=== PATIENT | female | born 1940 | race Caucasian/White ===

== ENCOUNTER 2017-08-09 15:01 | Emergency (ER) | payer MEDICARE, BC, SELFPAY ==
[2017-08-09 15:03] VITALS: BP 131/74; PULSE 90; RESP 16; TEMP 36.4; O2SAT 94; BMI 26.5
[2017-08-09 15:10] VITALS: BP 125/70; PULSE 80; RESP 14; O2SAT 99
--- NOTE | 2017-08-09 15:17 | RAD_ITS ---
STUDY: X-RAY CHEST REASON FOR EXAM: Female, 77 years old. Cough TECHNIQUE: PA and lateral views of the chest. COMPARISON: July 29, 2016 chest x-ray FINDINGS: There is a right side portacatheter tip is in the superior vena cava. There is a visualized right-sided calcified breast implant. The right lung is partially obscured. There is increased interstitial markings in the lungs throughout with predominance in the left lung base. There is improved aeration of the lungs since prior study. There is borderline cardiomegaly. Normal mediastinum and eloy. Normal visualized pulmonary arteries. There is atherosclerotic calcification of the aortic arch with tortuosity. There are diffuse degenerative changes of the visualized thoracic spine. Normal visualized ribs, clavicles, and shoulders. There is no demonstrated abnormality of the visualized soft tissue structures of the upper abdomen. RAD/Chest PA and Lateral IMPRESSION: Improved aeration of the lungs since prior study, minimal left lower lobe atelectasis. Trace pulmonary edema. Right-sided Port-A-Cath tip in the superior vena cava. Electronically Signed: Carlie Ramos MD at 15:47 EDT Tel , Service support ,
--- NOTE | 2017-08-09 15:17 | RAD_ITS ---
STUDY: X-RAY - RIGHT KNEE REASON FOR EXAM: Female, 77 years old. Fall and swelling. Pain TECHNIQUE: 4 view(s) of the knee. COMPARISON: None. FINDINGS: Lucencies in the tibial plateau noted likely an intra-articular lateral tibial plateau fracture. Knee joint effusion. Degenerative changes in the knee joint also seen with spurring. Patellofemoral compartment spurring also seen IMPRESSION: Intra-articular likely comminuted fracture of the lateral tibial plateau. Small knee joint effusion suspected Degenerative arthritis of the knee joint Electronically Signed: Germain Henderson, at 15:51 EDT Tel , Service support , RAD/Knee 4 or More Views
--- NOTE | 2017-08-09 15:22 | ED.DCSUM_ITS ---
- ER Visit Summary Date of Service: 08/09/17 Chief Complaint: Fall with right knee injury History of Present Illness: The patient is a 77 F who slipped on a wet floor yesterday and twisted her right knee when she fell. She denies landing directly on her knee. She states she is unable to bear weight on her right leg. She has been taking Tylenol for pain. She denies any other injury from the fall. Patient does have a history of COPD and continues to smoke. Family is concerned about a significant cough that she has had recently and is afraid she may have pneumonia. Physical Examination: Vital signs unremarkable. Patient sitting upright in bed no acute distress. Head neck examination reveals no external sign of trauma. Heart is regular rate and rhythm. Lung sounds are clear. Abdomen is soft nontender. Lower extremity examination reveals mild tenderness diffusely around the right knee including the lateral joint line. Ligaments appear tight on testing. She has mild edema noted. She does have increased pain with movement. Strong distal pulses are noted. There is no erythema or abrasions noted. Upper extremity examination reveals mild tenderness of the left wrist on the radial aspect. She has full range of motion and no significant edema. She is normal cap refill and sensation. Test Results: Left wrist x-ray shows no acute fracture. Chest x-ray shows improved aeration compared to prior. There is mild left lower lobe atelectasis. Right knee x-ray reveals an intra-articular likely comminuted fracture of the lateral tibial plateau. CT of the right knee was then obtained which confirmed an acute depressed intra-articular fracture the lateral tibial plateau with a joint effusion. There is a 6 mm depressed fracture segment. Emergency Department Course and Treatment: Following CT results I spoke with Dr. Marcial, on-call for Dr. Burton. He states that depression less than 1 cm in the lateral plateau is treated nonoperatively. Patient can be placed in a knee immobilizer and is made nonweightbearing. Treatment Plan: [] Disposition: Discharge Impression: 1. Right lateral tibial plateau fracture This note was generated with [employer] dictation software. It may contain incorrect words, spelling, and punctuation that were not noted in review of the chart prior to signing ED Disposition - Plan for ED Patient: Chief Complaint: Lower Extremity Injury Referrals: Kayden Lan Chi, MD [Primary Care Provider] -
--- NOTE | 2017-08-09 15:24 | RAD_ITS ---
STUDY: X-RAY - LEFT WRIST REASON FOR EXAM: Female, 77 years old. Fall TECHNIQUE: 3 view(s) of the wrist were obtained. COMPARISON: None. FINDINGS: No definite evidence for acute fracture or dislocation seen. No lunate or perilunate dislocation. Diffuse osteopenia noted IMPRESSION: No evidence for acute fractures Electronically Signed: Germain Henderson, at 15:48 EDT Tel , Service support , RAD/Wrist min 3 Views
--- NOTE | 2017-08-09 16:17 | CT_ITS ---
STUDY: CT RIGHT KNEE WITHOUT CONTRAST REASON FOR EXAM: Female, 77 years old. Trauma RADIATION DOSAGE (If Supplied By Facility): CTDIvol = ( 15.35 ) mGy, DLP = ( 380.63 ) mGycm TECHNIQUE: Transaxial CT imaging of the knee was performed. Coronal and sagittal images were reformatted. COMPARISON: None. FINDINGS: Narrowed medial femoral condyle and medial tibial plateau. There is preservation of the articular joint space of the medial knee compartment. Normal lateral femoral condyle. There is a depressed intra-articular fracture of the lateral tibial plateau with approximately 6 mm depression of the fracture fragment. There is preservation of the articular joint space of the lateral knee compartment. Normal proximal tibiofibular articulation. There is a moderate size joint effusion The quadriceps tendon is grossly normal. The patellar tendon is grossly normal. Normal Hoffa's fat pad. The soft tissues are unremarkable. CT/Extremity Lower without Contra IMPRESSION: Acute depressed intra-articular fracture of the lateral tibial plateau with joint effusion Electronically Signed: Ari Adan MD at 17:27 EDT , Service support ,
[2017-08-09 17:03] VITALS: BP 115/70; PULSE 80; RESP 14; O2SAT 98
--- NOTE | 2017-08-09 17:38 | NURSING ---
DR MARY SANCHEZ PAGED
--- NOTE | 2017-08-09 18:04 | ED.DEP ---
ED Disposition - Plan for ED Patient: Disposition: Home or Assisted Living Chief Complaint: Lower Extremity Injury Instructions: ED Fx Knee Referrals: Azam Burton DO [STAFF PHYSICIAN] - 5-7 Days
== END 2017-08-09 18:25 | disposition home or self-care (01) ==
PROVIDERS: Emergency Provider Emergency Medicine; Family Provider Family Medicine Geriatric Medicine; PCP Family Medicine Geriatric Medicine
DX: S82.141A Displaced bicondylar fracture of right tibia, initial encounter for closed fracture (principal); J44.9 Chronic obstructive pulmonary disease, unspecified; F17.200 Nicotine dependence, unspecified, uncomplicated; Z85.72 Personal history of non-Hodgkin lymphomas; W01.0XXA Fall on same level from slipping, tripping and stumbling without subsequent striking against object, initial encounter; Y93.01 Activity, walking, marching and hiking; Y92.009 Unspecified place in unspecified non-institutional (private) residence as the place of occurrence of the external cause; Y99.8 Other external cause status
CPT/HCPCS: 71046; 73110; 73564; 73700; 99283

== ENCOUNTER → 2017-08-20 16:16 | Outpatient (CLI) | payer MEDICARE, BC, SELFPAY | PROVIDERS: Family Provider Family Medicine Geriatric Medicine; PCP Family Medicine Geriatric Medicine; Visit Provider Otolaryngology | DX: H92.12 Otorrhea, left ear (principal) | CPT/HCPCS: 87070; 87075; 87077; 87186; 87205 ==

== ENCOUNTER → 2017-09-02 11:08 | Outpatient (CLI) | payer MEDICARE, BC, SELFPAY ==
[2017-09-02 12:50] LABS: Absolute Neutrophil Count 5.4 X10^3/uL (2.0-7.7); Basophil# 0.04 X10^3/uL; Basophil% 0.5 % (0-1); Eosinophil# 0.14 X10^3/uL; Eosinophils% 1.8 % (0-5); Hematocrit 44.6 % (37-47); Hemoglobin 14.5 g/dl (12.0-15.0); Lymphocyte % 21.3 % (19-41); Mean Corp Hgb Conc 32.5 g/gl (32-36); Mean Corpuscular Hgb 31.5 pg (27.0-32.0); Monocyte# 0.67 X10^3/uL; Monocyte% 8.4 % (0-10); Neutrophil # 5.41 X10^3/uL (2.7-7.7); Neutrophil % 67.6 % (47-70); Platelet Count 259 K/mm3 (150-450); RBC Distribution Width CV 14.1 % (11.6-14.6); RBC Distribution Width SD 49.9 fl (35.1-43.9)
[2017-09-02 12:52] LABS: POSITIVE COUNT NO; POSITIVE DIFFERENTIAL NO; POSITIVE MORPHOLOGY NO
[2017-09-02 13:07] LABS: ALB/GLOB Ratio 0.7 RATIO (0.9-2.4); AST(SGOT) 17 U/L (15-37); Alanine Aminotransfer ALT/SGPT 19 U/L (13-56); Alkaline Phosphatase 189 U/L (45-117); Anion Gap 8 (5-15); BUN 10 mg/dL (7-18); BUN/Creat Ratio 8.3 RATIO (10-20); Calcium,Total 8.9 mg/dL (8.5-10.1); Chloride 106 mmol/L (98-107); Creatinine, Serum 1.21 mg/dL (0.55-1.02); EST Glomerular Filtration Rate 46 mL/min (>60); Est Glom Filt Rate - Afr Amer 55 mL/min (>60); Globulin 4.3 g/dL (2.2-4.2); Glucose 91 mg/dL (74-106); Potassium 4.8 mmol/L (3.5-5.1); Protein, Total 7.3 g/dL (6.4-8.2); Sodium Level 140 mmol/L (136-145); Thyroid Stim Hormone (TSH) 1.28 uIU/mL (0.358-3.74); Uric Acid 6.7 mg/dL (2.6-6.0)
[2017-09-03 08:36] LABS: Vitamin D,25 Hydroxy 24.9 ng/mL (29.95-100.01)
== END ==
PROVIDERS: Family Provider Family Medicine Geriatric Medicine; PCP Family Medicine Geriatric Medicine; Visit Provider Family Medicine Geriatric Medicine
DX: I10 Essential (primary) hypertension (principal); E55.9 Vitamin D deficiency, unspecified; M10.9 Gout, unspecified
CPT/HCPCS: 36415; 80053; 82306; 84443; 84550; 85025

== ENCOUNTER 2017-09-18 16:30 | Outpatient (RCR) | payer MEDICARE, BC, SELFPAY ==
--- NOTE | 2017-09-15 11:36 | HP.PTEVAL ---
Patient's Visit Information TIMOTHY MARCH is a 77 year old F referred to Physical Therapy by Sarmad Marcial DO with a diagnosis of R tibial Fx. Date of Evaluation: 09/15/17 Physical Therapist: Hudson Anthony PT, - Visit Plan Frequency: 1x/Week Duration: 1 Week Plan: Issue HEP consisting of R LE strengthening and core stab ex's - Subjective Subjective: DOI: 08/08/17. Pt reports she was walking in a a greenhouse that day. Pt reports she slipped on a wet floor resulting in a fracture to her R tibia. Pt reports she always walks with brace on her knee, and notes she has stairs at home and has to be able to negotiate them since her bathroom is up stairs. Pt reports no T or N in her R LE. Pt reports no sleep diff secondary to pain. Pt reports she is to RTD on 09/23, which she hopes she is told not to wear her brace anymore. Pt reports she is not allowed to drive right now. Pt works in a [employer] in [place]. 0/10 pain at rest, 1/10 at worst. - Pain R knee Pain Intensity (Out of 10): 0 Pain Intensity Range: 1 - Objective Neuro: B LE sensation is WNL to light touch. ROM: L knee 0-135; R knee 0-100. MMT: L LE 5/5, R LE 4/5. Gait: Pt ambulates with arollator. Slow cadance, PWB. Stairs: Pt can negotiate stairs, 1 step at a time, 2 handrails. - Goals Goal 1:: I with HEP in 1 visit Goal Time Frame: 1 Week - Rehabilitation Potential Physical Therapy Diagnosis: R knee paiin, weakness, and limited ROM secondary to R tibial Fx Rehabilitation Potential: Good - Anticipated Interventions Patient/Client Instruction: Educate patient on: Condition, Plan of Care For the Purpose of:: To improve self management Therapeutic Exercise to Include: Strength training, Endurance training, Balance training, Dynamic Lumbar Stabilization For the Purpose of:: To decrease pain, To increase ROM, To improve muscle performance and motor function Cryotherapy (ice pack, ice massage): Yes For the Purpose of:: To decrease pain Thank you for the opportunity to evaluate your patient. For Medicare and Medicare HMO plans, please review the plan of care and approve it. It will need to be FAXED BACK to us at [phone] for Medicare purposes. Please let me know if there are questions or concerns regarding this plan of care. Physician Signature: Date:
--- NOTE | 2017-09-18 17:13 | HP.PTDCSUM ---
HP - PT D/C Summary It has been my pleasure to treat TIMOTHY MARCH under orders from Sarmad Marcial DO, for the diagnosis of R tibial Fx for a total of 2 visit(s). Discharge Date: Please see the following information for a summary of their discharge status. - Subjective Subjective: I am still the same - Pain R knee Pain Intensity (Out of 10): 3 - Objective Objective/Function: Pt is now I with HEP - Goals Goal 1:: I with HEP in 1 visit Goal Progress: Goal Met - Plan Plan: Discharge - D/C Information If there are questions or concerns regarding this patient's physical therapy, please feel free to call me at [phone]. Thank you for the referral of this patient. Sincerely, Hudson Anthony, PT,
== END 2017-09-18 19:00 | disposition home or self-care (01) ==
LOC: PT 16:30
PROVIDERS: Family Provider Family Medicine Geriatric Medicine; PCP Family Medicine Geriatric Medicine; Visit Provider Orthopaedic Surgery
DX: S82.124D Nondisplaced fracture of lateral condyle of right tibia, subsequent encounter for closed fracture with routine healing (principal)
CPT/HCPCS: 97161; 97530

== ENCOUNTER → 2017-09-23 15:19 | Outpatient (CLI) | payer MEDICARE, BC, SELFPAY ==
[2017-09-23 18:17] LABS: Hematocrit 44.6 % (37-47); Hemoglobin 14.8 g/dl (12.0-15.0); Mean Corp Hgb Conc 33.2 g/gl (32-36); Mean Corpuscular Hgb 31.9 pg (27.0-32.0); Mean Corpuscular Volume 96.1 fL (81-99); Mean Platelet Vol. 13.2 fl (6.2-12.0); Platelet Count 260 K/mm3 (150-450); RBC Distribution Width CV 13.6 % (11.6-14.6); RBC Distribution Width SD 46.9 fl (35.1-43.9); Red Blood Count 4.64 M/mm3 (4.2-5.4); White Blood Count 7.8 K/mm3 (4.4-11.0)
[2017-09-23 18:18] LABS: Scan Indicated on CBC? Y/N NO
[2017-09-23 18:28] LABS: Albumin, Serum 3.2 g/dL (3.2-5.0); BUN 10 mg/dL (7-18); BUN/Creat Ratio 7.8 RATIO (10-20); Chloride 102 mmol/L (98-107); Creatinine, Serum 1.29 mg/dL (0.55-1.02); EST Glomerular Filtration Rate 42 mL/min (>60); Est Glom Filt Rate - Afr Amer 51 mL/min (>60); Glucose 94 mg/dL (74-106); Magnesium 1.9 mg/dL (1.6-2.6); Phosphorus 3.6 mg/dL (2.5-4.9); Potassium 4.4 mmol/L (3.5-5.1); Sodium Level 139 mmol/L (136-145)
[2017-09-23 18:44] LABS: Microalbumin:Creatinine Ratio 67.4 mg/g CRE (<30 mg/g CRE)
[2017-09-24 09:44] LABS: Vitamin D,25 Hydroxy 25.6 ng/mL (29.95-100.01)
[2017-09-24 09:52] LABS: PTHIN 111.9 pg/mL (18.4-80.1)
== END ==
PROVIDERS: Family Provider Family Medicine Geriatric Medicine; PCP Family Medicine Geriatric Medicine; Visit Provider Internal Medicine Nephrology
DX: N18.3 Chronic kidney disease, stage 3 (moderate) (principal); E55.9 Vitamin D deficiency, unspecified; N25.81 Secondary hyperparathyroidism of renal origin; E83.42 Hypomagnesemia
CPT/HCPCS: 36415; 80069; 82043; 82306; 82570; 83735; 83970; 85027

== ENCOUNTER → 2017-09-25 14:45 | Outpatient (CLI) | payer MEDICARE, BC, SELFPAY | PROVIDERS: Family Provider Family Medicine Geriatric Medicine; PCP Family Medicine Geriatric Medicine; Visit Provider Otolaryngology | DX: H92.10 Otorrhea, unspecified ear (principal) | CPT/HCPCS: 87070; 87075; 87077; 87186; 87205 ==

== ENCOUNTER → 2017-10-15 14:19 | Outpatient (CLI) | payer MEDICARE, BC, SELFPAY ==
--- NOTE | 2017-10-15 14:22 | CT_ITS ---
STUDY: CT TEMPORAL BONES WITHOUT CONTRAST - ATTN: I.A.C. S REASON FOR EXAM: Female, 77 years old. Hearing loss left ear with drainage RADIATION DOSAGE (If Supplied By Facility): CTDIvol = ( 74.34 ) mGy, DLP = ( 629.68 ) mGycm TECHNIQUE: The patient was scanned in a multi detector CT scanner. Transaxial imaging was performed without the administration of intravenous contrast material. Sagittal and coronal images were reconstructed. Individualized dose optimization techniques were used for this CT. COMPARISON: None. FINDINGS: RIGHT TEMPORAL BONE Normal right internal auditory canal. Normal visualized ossicles and tympanic cavity. Normal right cochlea and semicircular canals. Normal vestibular aqueduct. Normal right petrous carotid artery. Normal right jugular fossa. Normal right mastoid air cells. Normal right petrous apex. LEFT TEMPORAL BONE There is thickening of the tympanic membrane. Soft tissue density is noted in the lateral mesotympanum extending upwards to the epitympanum. No ossicular erosions are seen. The scutum is sharply defined. Findings are most likely related to otitis media, although the possibility of cholesteatoma is not entirely excluded. The internal auditory canal and labyrinth are intact. The tegmen tympani is intact. The facial nerve canal is intact. CT/Orb Sella Post Fossa Ear w/o IMPRESSION: Abnormalities on the left including noncoalescent mastoiditis, tympanic membrane thickening, and soft tissue density extending from the lateral mesotympanum to the epitympanum. The latter is most likely related to otitis media, although the possibility of cholesteatoma cannot be entirely excluded. Of note, the scutum is sharply defined and no ossicular erosions are seen. Electronically Signed: Yang Renner MD at 5:57 EDT Tel , Service support ,
== END ==
PROVIDERS: Family Provider Family Medicine Geriatric Medicine; PCP Family Medicine Geriatric Medicine; Visit Provider Otolaryngology
DX: H91.90 Unspecified hearing loss, unspecified ear (principal)
CPT/HCPCS: 70480

== ENCOUNTER → 2018-01-06 10:49 | Outpatient (CLI) | payer MEDICARE, BC, SELFPAY ==
--- NOTE | 2018-01-06 16:07 | PFTCOMP_ITS ---
COMPLETE PULMONARY FUNCTION TEST INTERPRETATION Brief HPI: Patient is a 77 year old female, currently under the care of Marry Mantilla, who presents to [facility] for complete pulmonary function tests secondary to diagnosis of pneumonia. Respiratory therapist reports good effort and reproducible results. Interpretation: Forced expiration spirometry shows no large airways obstructive ventilatory defect with an FEV1 of 102% predicted. There is no significant bronchodilator response by ATS criteria. Spirograms are of good quality and plateau normally. The respiratory flow volume loop shows a normal pattern. Lung volumes by body plethysmography show a normal total lung capacity at 4.82 L, 106% predicted. All other lung volumes are within normal limits. Diffusion capacity by carbon monoxide is normal at 87% predicted. The airway resistance is elevated. Compared to previous pulmonary function tests from 09/09/2016, there has been a significant improvement in lung volumes and DLCO. Impression: These pulmonary function tests are within normal limits and show significant improvement compared to previous.
== END ==
PROVIDERS: Family Provider Family Medicine Geriatric Medicine; PCP Family Medicine Geriatric Medicine; Referring Provider Nurse Practitioner Acute Care; Visit Provider Nurse Practitioner Acute Care
DX: R06.09 Other forms of dyspnea (principal)
CPT/HCPCS: 94060; 94726; 94729

== ENCOUNTER → 2018-03-02 11:50 | Outpatient (CLI) | payer MEDICARE, BC, SELFPAY ==
[2018-02-04 12:34] VITALS: BMI 26.0
[2018-03-02 13:15] LABS: Absolute Lymphocyte Count 2.24 X10^3/ul (0.83-4.51); Absolute Neutrophil Count 4.9 X10^3/uL (2.0-7.7); Basophil# 0.04 X10^3/uL; Basophil% 0.5 % (0-1); Eosinophil# 0.13 X10^3/uL; Eosinophils% 1.7 % (0-5); Hematocrit 45.7 % (37-47); Hemoglobin 15.1 g/dl (12.0-15.0); Lymphocyte # 2.24 X10^3/ul (4.0); Lymphocyte % 28.5 % (19-41); Mean Corpuscular Hgb 31.1 pg (27.0-32.0); Mean Corpuscular Volume 94.2 fL (81-99); Mean Platelet Vol. 12.4 fl (6.2-12.0); Monocyte# 0.54 X10^3/uL; Monocyte% 6.9 % (0-10); Neutrophil # 4.91 X10^3/uL (2.7-7.7); Neutrophil % 62.3 % (47-70); Platelet Count 257 K/mm3 (150-450); RBC Distribution Width CV 13.9 % (11.6-14.6); RBC Distribution Width SD 46.2 fl (35.1-43.9); Red Blood Count 4.85 M/mm3 (4.2-5.4); White Blood Count 7.9 K/mm3 (4.4-11.0)
[2018-03-02 13:16] LABS: POSITIVE COUNT NO; POSITIVE DIFFERENTIAL NO; POSITIVE MORPHOLOGY NO
[2018-03-02 13:24] LABS: ALB/GLOB Ratio 0.7 RATIO (0.9-2.4); AST(SGOT) 13 U/L (15-37); Alanine Aminotransfer ALT/SGPT 13 U/L (13-56); Albumin, Serum 3.2 g/dL (3.2-5.0); Alkaline Phosphatase 142 U/L (45-117); Anion Gap 10 (5-15); BUN 13 mg/dL (7-18); BUN/Creat Ratio 10.7 RATIO (10-20); Calcium,Total 8.9 mg/dL (8.5-10.1); Chloride 104 mmol/L (98-107); Creatinine, Serum 1.22 mg/dL (0.55-1.02); EST Glomerular Filtration Rate 45 mL/min (>60); Est Glom Filt Rate - Afr Amer 55 mL/min (>60); Globulin 4.6 g/dL (2.2-4.2); Glucose 101 mg/dL (74-106); Potassium 3.9 mmol/L (3.5-5.1); Protein, Total 7.8 g/dL (6.4-8.2); Sodium Level 142 mmol/L (136-145); Thyroid Stim Hormone (TSH) 0.35 uIU/mL (0.358-3.74); Uric Acid 6.7 mg/dL (2.6-6.0)
== END ==
PROVIDERS: Family Provider Family Medicine Geriatric Medicine; PCP Family Medicine Geriatric Medicine; Visit Provider Family Medicine Geriatric Medicine
DX: I10 Essential (primary) hypertension (principal); E55.9 Vitamin D deficiency, unspecified; M10.9 Gout, unspecified
CPT/HCPCS: 36415; 80053; 82306; 84443; 84550; 85025

== ENCOUNTER → 2018-03-19 15:38 | Outpatient (CLI) | payer MEDICARE, BC, SELFPAY ==
[2018-03-19 10:08] VITALS: BMI 26.2
== END ==
PROVIDERS: Family Provider Family Medicine Geriatric Medicine; PCP Family Medicine Geriatric Medicine; Referring Provider Otolaryngology; Visit Provider Otolaryngology
DX: H92.10 Otorrhea, unspecified ear (principal)
CPT/HCPCS: 87070; 87075; 87077; 87186; 87205

== ENCOUNTER → 2018-03-27 15:15 | Outpatient (CLI) | payer MEDICARE, BC, SELFPAY ==
[2018-03-19 10:08] VITALS: BMI 26.2
[2018-03-27 15:22] LABS: Bacteria 0 SEEN /hpf (None Seen); Mucous, Urine 0 SEEN /hpf (<or=2+); Red Blood Cells-Urine 0 SEEN /hpf (0-5)
[2018-03-27 18:13] LABS: Color, Urine Yellow (Yellow); Glucose, Dipstick Normal (Normal); Ketone-Dipstick Negative (Negative); Leukocyte Esterase-Dipstick 100 /ul (Negative); Nitrite-Dipstick Negative (Negative); Occult Blood-Urine Negative /ul (Negative); Protein-Dipstick Negative (Negative); Specific Gravity, Urine 1.015 (1.002-1.030); Urine Bilirubin Dipstick Negative (Negative); Urine Clarity Clear (Clear); Urine Urobilinogen Normal (Normal)
[2018-03-27 18:20] LABS: Albumin, Serum 3.3 g/dL (3.2-5.0); BUN 18 mg/dL (7-18); Calcium,Total 9.2 mg/dL (8.5-10.1); Chloride 102 mmol/L (98-107); Creatinine, Serum 1.38 mg/dL (0.55-1.02); EST Glomerular Filtration Rate 39 mL/min (>60); Est Glom Filt Rate - Afr Amer 47 mL/min (>60); Glucose 89 mg/dL (74-106); Phosphorus 3.2 mg/dL (2.5-4.9); Potassium 3.9 mmol/L (3.5-5.1); Sodium Level 138 mmol/L (136-145)
[2018-03-27 18:27] LABS: Squamous Epithelial Cells - UA 10-25 SEEN /hpf (5-10); Transitional Epithelial - Ur 0-5 SEEN /hpf (0-5); White Blood Cells 0-5 SEEN /hpf (0-5)
[2018-03-27 18:31] LABS: Absolute Lymphocyte Count 2.71 X10^3/ul (0.83-4.51); Absolute Neutrophil Count 4.5 X10^3/uL (2.0-7.7); Basophil# 0.04 X10^3/uL; Basophil% 0.5 % (0-1); Eosinophil# 0.14 X10^3/uL; Eosinophils% 1.8 % (0-5); Hematocrit 45.9 % (37-47); Hemoglobin 15.1 g/dl (12.0-15.0); Lymphocyte # 2.71 X10^3/ul (4.0); Lymphocyte % 34.1 % (19-41); Mean Corp Hgb Conc 32.9 g/gl (32-36); Mean Corpuscular Hgb 31.3 pg (27.0-32.0); Mean Platelet Vol. 12.3 fl (6.2-12.0); Monocyte# 0.55 X10^3/uL; Monocyte% 6.9 % (0-10); Neutrophil # 4.49 X10^3/uL (2.7-7.7); Neutrophil % 56.6 % (47-70); POSITIVE COUNT NO; POSITIVE DIFFERENTIAL NO; POSITIVE MORPHOLOGY NO; Platelet Count 297 K/mm3 (150-450); RBC Distribution Width SD 48.8 fl (35.1-43.9); Red Blood Count 4.83 M/mm3 (4.2-5.4); White Blood Count 7.9 K/mm3 (4.4-11.0)
[2018-03-27 18:42] LABS: Vitamin D,25 Hydroxy 23.4 ng/mL (29.95-100.01)
[2018-03-27 18:56] LABS: PTHIN 131.2 pg/mL (18.4-80.1)
[2018-03-27 21:01] LABS: Microalbumin,Random Urine 19.6 mg/L (NO RANGE EST.); Microalbumin:Creatinine Ratio 19.8 mg/g CRE (<30 mg/g CRE); Protein, Urine (Random) 10.5 mg/dL (<11.9); Protein:Creat Ratio 106 mg/g CRE (0-200)
== END ==
PROVIDERS: Family Provider Family Medicine Geriatric Medicine; PCP Family Medicine Geriatric Medicine; Referring Provider Internal Medicine Nephrology; Visit Provider Internal Medicine Nephrology
DX: N25.81 Secondary hyperparathyroidism of renal origin (principal); N18.3 Chronic kidney disease, stage 3 (moderate); E55.9 Vitamin D deficiency, unspecified
CPT/HCPCS: 36415; 80069; 81001; 82043; 82306; 82570; 83970; 84156; 85025

== ENCOUNTER → 2018-06-17 14:30 | Outpatient (CLI) | payer MEDICARE, BC, SELFPAY ==
[2018-03-19 10:08] VITALS: BMI 26.2
== END ==
PROVIDERS: Family Provider Family Medicine Geriatric Medicine; PCP Family Medicine Geriatric Medicine; Visit Provider Family Medicine Geriatric Medicine
DX: N39.0 Urinary tract infection, site not specified (principal)
CPT/HCPCS: 87086; 87088; 87186

== ENCOUNTER → 2018-09-02 | Outpatient (CLI) | payer MEDICARE, BC, SELFPAY ==
[2018-07-29 13:29] VITALS: BMI 26.6
[2018-09-02 10:32] LABS: Absolute Lymphocyte Count 1.89 X10^3/ul (0.83-4.51); Absolute Neutrophil Count 4.7 X10^3/uL (2.0-7.7); Basophil# 0.05 X10^3/uL; Basophil% 0.7 % (0-1); Eosinophils% 2.6 % (0-5); Hematocrit 45.9 % (37-47); Hemoglobin 15.1 g/dl (12.0-15.0); Lymphocyte # 1.89 X10^3/ul (4.0); Lymphocyte % 24.7 % (19-41); Mean Corp Hgb Conc 32.9 g/gl (32-36); Mean Corpuscular Hgb 31.3 pg (27.0-32.0); Mean Corpuscular Volume 95.2 fL (81-99); Mean Platelet Vol. 12.2 fl (6.2-12.0); Monocyte# 0.78 X10^3/uL; Monocyte% 10.2 % (0-10); Neutrophil # 4.71 X10^3/uL (2.7-7.7); Neutrophil % 61.5 % (47-70); Platelet Count 244 K/mm3 (150-450); RBC Distribution Width CV 13.3 % (11.6-14.6); RBC Distribution Width SD 45.9 fl (35.1-43.9); Red Blood Count 4.82 M/mm3 (4.2-5.4); White Blood Count 7.7 K/mm3 (4.4-11.0)
[2018-09-02 10:34] LABS: POSITIVE COUNT NO; POSITIVE DIFFERENTIAL NO; POSITIVE MORPHOLOGY NO
[2018-09-02 10:50] LABS: Vitamin D,25 Hydroxy 54.4 ng/mL (29.95-100.01)
[2018-09-02 10:56] LABS: ALB/GLOB Ratio 0.7 RATIO (0.9-2.4); AST(SGOT) 11 U/L (15-37); Alanine Aminotransfer ALT/SGPT 16 U/L (13-56); Albumin, Serum 3.1 g/dL (3.2-5.0); Alkaline Phosphatase 147 U/L (45-117); Anion Gap 2 (5-15); BUN 15 mg/dL (7-18); BUN/Creat Ratio 11.8 RATIO (10-20); Calcium,Total 8.9 mg/dL (8.5-10.1); Chloride 106 mmol/L (98-107); Creatinine, Serum 1.27 mg/dL (0.55-1.02); EST Glomerular Filtration Rate 43 mL/min (>60); Est Glom Filt Rate - Afr Amer 52 mL/min (>60); Globulin 4.4 g/dL (2.2-4.2); Glucose 89 mg/dL (74-106); Potassium 3.8 mmol/L (3.5-5.1); Protein, Total 7.5 g/dL (6.4-8.2); Sodium Level 136 mmol/L (136-145); Thyroid Stim Hormone (TSH) 0.02 uIU/mL (0.358-3.74)
[2018-09-03 09:38] LABS: T3 Uptake 32 % (30-39)
== END | disposition home or self-care (01) ==
LOC: POLAB3 08:40
PROVIDERS: Family Provider Family Medicine Geriatric Medicine; PCP Family Medicine Geriatric Medicine; Visit Provider Family Medicine Geriatric Medicine
DX: E55.9 Vitamin D deficiency, unspecified (principal); I10 Essential (primary) hypertension; E03.9 Hypothyroidism, unspecified; M10.9 Gout, unspecified
CPT/HCPCS: 36415; 80053; 82306; 84439; 84443; 84479; 84550; 85025

== ENCOUNTER → 2018-09-09 | Outpatient (CLI) | payer MEDICARE, BC, SELFPAY ==
[2018-07-29 13:29] VITALS: BMI 26.6
[2018-09-09 14:13] LABS: Hematocrit 46.4 % (37-47); Hemoglobin 15.4 g/dl (12.0-15.0); Mean Corp Hgb Conc 33.2 g/gl (32-36); Mean Corpuscular Hgb 31.4 pg (27.0-32.0); Mean Corpuscular Volume 94.5 fL (81-99); Mean Platelet Vol. 13.1 fl (6.2-12.0); Platelet Count 222 K/mm3 (150-450); RBC Distribution Width CV 13.3 % (11.6-14.6); RBC Distribution Width SD 46.1 fl (35.1-43.9); Red Blood Count 4.91 M/mm3 (4.2-5.4)
[2018-09-09 14:14] LABS: Color, Urine Yellow (Yellow); Glucose, Dipstick Normal (Normal); Ketone-Dipstick Negative (Negative); Leukocyte Esterase-Dipstick 25 /ul (Negative); Nitrite-Dipstick Negative (Negative); Occult Blood-Urine 10 /ul (Negative); Protein-Dipstick 15 mg/dl (Negative); Scan Indicated on CBC? Y/N NO; Specific Gravity, Urine 1.015 (1.002-1.030); Urine Bilirubin Dipstick Negative (Negative); Urine Clarity Sl. Cloudy (Clear); Urine Urobilinogen Normal (Normal)
[2018-09-09 14:19] LABS: BUN 11 mg/dL (7-18); Creatinine, Serum 1.27 mg/dL (0.55-1.02); Glucose 81 mg/dL (74-106)
[2018-09-09 14:20] LABS: Albumin, Serum 3.1 g/dL (3.2-5.0); BUN/Creat Ratio 8.7 RATIO (10-20); Calcium,Total 9.1 mg/dL (8.5-10.1); Chloride 105 mmol/L (98-107); EST Glomerular Filtration Rate 43 mL/min (>60); Est Glom Filt Rate - Afr Amer 52 mL/min (>60); Phosphorus 3.1 mg/dL (2.5-4.9); Sodium Level 141 mmol/L (136-145)
[2018-09-09 14:27] LABS: PTHIN 131.1 pg/mL (18.4-80.1); Vitamin D,25 Hydroxy 51.1 ng/mL (29.95-100.01)
[2018-09-09 14:38] LABS: Microalbumin,Random Urine 28.6 mg/L (NO RANGE EST.); Microalbumin:Creatinine Ratio 23.1 mg/g CRE (<30 mg/g CRE); Protein, Urine (Random) 20.9 mg/dL (<11.9); Protein:Creat Ratio 169 mg/g CRE (0-200)
== END | disposition home or self-care (01) ==
LOC: MTLAB 11:11
PROVIDERS: Family Provider Family Medicine Geriatric Medicine; PCP Family Medicine Geriatric Medicine; Referring Provider Internal Medicine Nephrology; Visit Provider Internal Medicine Nephrology
DX: N18.3 Chronic kidney disease, stage 3 (moderate) (principal); E55.9 Vitamin D deficiency, unspecified
CPT/HCPCS: 36415; 80069; 81002; 82043; 82306; 82570; 83970; 84156; 85027

== ENCOUNTER → 2018-09-14 | Outpatient (CLI) | payer MEDICARE, BC, SELFPAY ==
[2018-07-29 13:29] VITALS: BMI 26.6
--- NOTE | 2018-09-14 09:51 | NM_ITS ---
CLINICAL: 78-year-old female with reported history of clinical hyperthyroidism. I-123 THYROID UPTAKE and SCAN COMPARISON: None available FINDINGS: The patient was administered a 300 uCi I-123 capsule by mouth. The 4-hour I-123 radioactive iodine thyroidal uptake was calculated to be 24.0 % (normal 5 to 25 %). The 24-hour I-123 radioactive iodine thyroidal uptake was calculated to be 78.0 % (normal 5 to 40 %). The I-123 thyroid scan demonstrates heterogeneous radiopharmaceutical concentration throughout both lobes of a U-shaped thyroid gland. A focal increase in tracer distribution appears evident in the superior pole of the right lobe of thyroid colloid relative to the remaining thyroid parenchyma. There are no well-defined colloidal parenchymal hypofunctioning-cold nodules noted in either lobe of the thyroid gland. NM/Thyroid Uptake Single or Mult IMPRESSION: 1. UPPER LIMITS OF NORMAL 4- and ABNORMAL, ELEVATED 24-hour I-123 radioactive iodine thyroidal uptakes. 2. The I-123 thyroid scan in conjunction with the clinical presentation, calculated iodine uptake values may represent presence of a superior pole right lobe toxic adenoma with incomplete suppression of the remaining thyroid colloid. Alternatively, findings are consistent with the presence of a toxic multinodular goiter. Electronically Signed: Derrick Reilly DO at 23:01 EDT Tel , Service support ,
== END | disposition home or self-care (01) ==
LOC: NM 09:49
PROVIDERS: Family Provider Family Medicine Geriatric Medicine; PCP Family Medicine Geriatric Medicine; Referring Provider Family Medicine Geriatric Medicine; Visit Provider Family Medicine Geriatric Medicine
DX: E05.90 Thyrotoxicosis, unspecified without thyrotoxic crisis or storm (principal)
CPT/HCPCS: 78012; A9516

== ENCOUNTER → 2018-10-05 | Outpatient (CLI) | payer MEDICARE, BC, SELFPAY ==
[2018-07-29 13:29] VITALS: BMI 26.6
--- NOTE | 2018-10-05 10:51 | US_ITS ---
STUDY: THYROID ULTRASOUND REASON FOR EXAM: Female, 78 years old. Goiter. TECHNIQUE: Ultrasound evaluation of the thyroid was performed with real-time and static johnson-scale imaging. COMPARISON: Nuclear medicine thyroid exam, September 14, 2018. FINDINGS: RIGHT LOBE: The right lobe of the thyroid gland measures 4.9 x 1.9 x 1.8 cm. There is a heterogeneous echotexture. There are multiple small nodules. The largest in the upper pole measures 0.8 x 0.8 x 0.5 cm. It has a mixed solid and cystic appearance with peripheral and internal vascularity. LEFT LOBE: The left lobe of the thyroid gland measures 5.2 x 1.7 x 1.4 cm. There is a heterogeneous echotexture. There are multiple nodules. The largest, in the lower pole measures 1.1 x 1.1 x 0.7 cm. This is mildly hyperechoic with hypoechoic rim and lobulated margin. There is a second adjacent hyperechoic nodule measuring 1 x 1 x 0.7 cm. There is peripheral vascularity on Doppler imaging. ISTHMUS: The isthmus measures 0.3 cm. Inferior to the thyroid. There is an anechoic nodule measuring 0.4 x 0.3 x 0.4 cm. US/Thyroid IMPRESSION: Findings consistent with multinodular goiter. The most suspicious nodule in the lower pole left thyroid demonstrates characteristics consistent with ACR TI RADS category TR 5, moderately suspicious. This should be followed yearly and biopsied if it enlarges greater than 1.5 cm. Electronically Signed: Alfredo Finley DO at 17:03 EDT Tel [phone], Service support ,
== END | disposition home or self-care (01) ==
LOC: US 10:49
PROVIDERS: Family Provider Family Medicine Geriatric Medicine; PCP Family Medicine Geriatric Medicine; Referring Provider Internal Medicine Endocrinology, Diabetes & Metabolism; Visit Provider Internal Medicine Endocrinology, Diabetes & Metabolism
DX: E05.20 Thyrotoxicosis with toxic multinodular goiter without thyrotoxic crisis or storm (principal)
CPT/HCPCS: 76536

== ENCOUNTER → 2018-10-16 | Outpatient (CLI) | payer MEDICARE, BC, SELFPAY ==
[2018-07-29 13:29] VITALS: BMI 26.6
[2018-10-16 17:28] LABS: Erythrocyte Sedimentation Rate 37 mm/hr (0-30)
[2018-10-16 18:09] LABS: Free T3 5.1 pg/mL (2.18-3.98); T4 Free Direct 1.52 ng/dL (0.76-1.46); Thyroid Stim Hormone (TSH) < 0.01 uIU/mL (0.358-3.74)
[2018-10-21 11:13] LABS: Thyroid Peroxidase AB 62 IU/mL (0-34)
== END | disposition home or self-care (01) ==
LOC: MTLAB 16:33
PROVIDERS: Family Provider Family Medicine Geriatric Medicine; PCP Family Medicine Geriatric Medicine; Referring Provider Internal Medicine Endocrinology, Diabetes & Metabolism; Visit Provider Internal Medicine Endocrinology, Diabetes & Metabolism
DX: E05.20 Thyrotoxicosis with toxic multinodular goiter without thyrotoxic crisis or storm (principal)
CPT/HCPCS: 36415; 84439; 84443; 84445; 84481; 85652; 86376

== ENCOUNTER → 2018-12-09 | Outpatient (CLI) | payer MEDICARE, BC, SELFPAY ==
[2018-07-29 13:29] VITALS: BMI 26.6
[2018-12-09 14:34] LABS: Erythrocyte Sedimentation Rate 12 mm/hr (0-30)
[2018-12-09 14:52] LABS: Free T3 2.6 pg/mL (2.18-3.98); T4 Free Direct 0.79 ng/dL (0.76-1.46); Thyroid Stim Hormone (TSH) 1.46 uIU/mL (0.358-3.74)
[2018-12-11 04:07] LABS: Thyroid Stim Immunoglob 1.47 IU/L (0.00-0.55)
[2018-12-11 16:34] LABS: Thyroid Peroxidase AB 92 IU/mL (0-34)
== END | disposition home or self-care (01) ==
LOC: MTLAB 12:13
PROVIDERS: Family Provider Family Medicine Geriatric Medicine; PCP Family Medicine Geriatric Medicine; Referring Provider Internal Medicine Endocrinology, Diabetes & Metabolism; Visit Provider Internal Medicine Endocrinology, Diabetes & Metabolism
DX: E05.20 Thyrotoxicosis with toxic multinodular goiter without thyrotoxic crisis or storm (principal)
CPT/HCPCS: 36415; 84439; 84443; 84445; 84481; 85652; 86376

== ENCOUNTER → 2019-03-03 14:55 | Outpatient (CLI) | payer MEDICARE, BC, SELFPAY ==
[2019-03-03 14:39] VITALS: BMI 26.6
[2019-03-03 17:55] LABS: Absolute Lymphocyte Count 2.51 X10^3/uL (0.83-4.51); Basophil# 0.06 X10^3/uL; Basophil% 0.7 % (0-1); Eosinophils% 1.2 % (0-5); Hematocrit 47.1 % (37-47); Hemoglobin 15.1 g/dL (12.0-15.0); Lymphocyte # 2.51 X10^3/ul (4.0); Lymphocyte % 30.5 % (19-41); Mean Corp Hgb Conc 32.1 g/dL (32-36); Mean Corpuscular Hgb 31.5 pg (27.0-32.0); Mean Corpuscular Volume 98.1 fL (81-99); Mean Platelet Vol. 11.7 fl (6.2-12.0); Monocyte# 0.53 X10^3/uL; Monocyte% 6.4 % (0-10); NRBC Flagged by Analyzer 0 % (0-5); Neutrophil % 60.8 % (47-70); Platelet Count 268 K/mm3 (150-450); RBC Distribution Width CV 13.8 % (11.6-14.6); RBC Distribution Width SD 50.6 fl (35.1-43.9); White Blood Count 8.2 K/mm3 (4.4-11.0)
[2019-03-03 18:21] LABS: ALB/GLOB Ratio 0.8 RATIO (0.9-2.4); AST(SGOT) 14 U/L (15-37); Alanine Aminotransfer ALT/SGPT 18 U/L (13-56); Albumin, Serum 3.5 g/dL (3.2-5.0); Alkaline Phosphatase 153 U/L (45-117); Anion Gap 6 (5-15); BUN 11 mg/dL (7-18); BUN/Creat Ratio 8.4 RATIO (10-20); Calcium,Total 8.7 mg/dL (8.5-10.1); Chloride 101 mmol/L (98-107); Creatinine, Serum 1.31 mg/dL (0.55-1.02); EST Glomerular Filtration Rate 42 mL/min (>60); Est Glom Filt Rate - Afr Amer 50 mL/min (>60); Free T3 3.1 pg/mL (2.18-3.98); Globulin 4.3 g/dL (2.2-4.2); Glucose 91 mg/dL (74-106); Potassium 3.9 mmol/L (3.5-5.1); Protein, Total 7.8 g/dL (6.4-8.2); Sodium Level 136 mmol/L (136-145); T4 Total, Thyroxin 3.8 ug/dL (4.8-13.9)
== END ==
PROVIDERS: Family Provider Family Medicine Geriatric Medicine; PCP Family Medicine Geriatric Medicine; Referring Provider Internal Medicine Endocrinology, Diabetes & Metabolism; Visit Provider Internal Medicine Endocrinology, Diabetes & Metabolism
DX: E05.20 Thyrotoxicosis with toxic multinodular goiter without thyrotoxic crisis or storm (principal)
CPT/HCPCS: 36415; 80053; 84436; 84443; 84481; 85025

== ENCOUNTER → 2019-03-04 12:03 | Outpatient (CLI) | payer MEDICARE, BC, SELFPAY ==
[2019-03-03 14:39] VITALS: BMI 26.6
[2019-03-04 12:39] LABS: Absolute Lymphocyte Count 2.38 X10^3/uL (0.83-4.51); Basophil# 0.07 X10^3/uL; Eosinophil# 0.15 X10^3/uL; Eosinophils% 2.1 % (0-5); Hematocrit 46.2 % (37-47); Hemoglobin 14.8 g/dL (12.0-15.0); Lymphocyte # 2.38 X10^3/ul (4.0); Mean Corpuscular Hgb 31.6 pg (27.0-32.0); Mean Corpuscular Volume 98.7 fL (81-99); Mean Platelet Vol. 11.7 fl (6.2-12.0); Monocyte# 0.57 X10^3/uL; Monocyte% 7.9 % (0-10); NRBC Flagged by Analyzer 0 % (0-5); Neutrophil # 4.02 X10^3/uL (2.7-7.7); Neutrophil % 55.7 % (47-70); Platelet Count 275 K/mm3 (150-450); RBC Distribution Width CV 13.8 % (11.6-14.6); RBC Distribution Width SD 50.4 fl (35.1-43.9); Red Blood Count 4.68 M/mm3 (4.2-5.4); White Blood Count 7.2 K/mm3 (4.4-11.0)
[2019-03-04 13:02] LABS: ALB/GLOB Ratio 0.8 RATIO (0.9-2.4); AST(SGOT) 11 U/L (15-37); Alanine Aminotransfer ALT/SGPT 15 U/L (13-56); Albumin, Serum 3.4 g/dL (3.2-5.0); Alkaline Phosphatase 164 U/L (45-117); Anion Gap 6 (5-15); BUN 13 mg/dL (7-18); BUN/Creat Ratio 8.4 RATIO (10-20); Calcium,Total 8.9 mg/dL (8.5-10.1); Chloride 105 mmol/L (98-107); Creatinine, Serum 1.55 mg/dL (0.55-1.02); EST Glomerular Filtration Rate 34 mL/min (>60); Est Glom Filt Rate - Afr Amer 41 mL/min (>60); Globulin 4.3 g/dL (2.2-4.2); Glucose 68 mg/dL (74-106); Protein, Total 7.7 g/dL (6.4-8.2); Sodium Level 139 mmol/L (136-145); Uric Acid 7.5 mg/dL (2.6-6.0)
[2019-03-04 13:07] LABS: Vitamin D,25 Hydroxy 28.4 ng/mL (29.95-100.01)
== END ==
PROVIDERS: Family Provider Family Medicine Geriatric Medicine; PCP Family Medicine Geriatric Medicine; Visit Provider Family Medicine Geriatric Medicine
DX: E55.9 Vitamin D deficiency, unspecified (principal); I10 Essential (primary) hypertension; M10.9 Gout, unspecified
CPT/HCPCS: 36415; 80053; 82306; 84443; 84550; 85025

== ENCOUNTER → 2019-05-03 | Outpatient (CLI) | payer MEDICARE, BC, SELFPAY ==
[2019-04-22 14:01] VITALS: BMI 26.6
[2019-05-03 15:47] LABS: Hematocrit 49.6 % (37-47); Hemoglobin 15.9 g/dL (12.0-15.0); Mean Corp Hgb Conc 32.1 g/dL (32-36); Mean Corpuscular Hgb 31.8 pg (27.0-32.0); Mean Corpuscular Volume 99.2 fL (81-99); Platelet Count 260 K/mm3 (150-450); RBC Distribution Width CV 14.5 % (11.6-14.6); RBC Distribution Width SD 53.1 fl (35.1-43.9)
[2019-05-03 15:59] LABS: Albumin, Serum 3.4 g/dL (3.2-5.0); BUN 32 mg/dL (7-18); Calcium,Total 8.9 mg/dL (8.5-10.1); Chloride 107 mmol/L (98-107); Creatinine, Serum 2.13 mg/dL (0.55-1.02); EST Glomerular Filtration Rate 24 mL/min (>60); Est Glom Filt Rate - Afr Amer 29 mL/min (>60); Glucose 98 mg/dL (74-106); Magnesium 2.6 mg/dL (1.6-2.6); Potassium 4.1 mmol/L (3.5-5.1); Sodium Level 138 mmol/L (136-145)
[2019-05-03 16:07] LABS: Free T3 3.4 pg/mL (2.18-3.98); T4 Free Direct 0.31 ng/dL (0.76-1.46)
[2019-05-03 16:22] LABS: Vitamin D,25 Hydroxy 30.6 ng/mL (29.95-100.01)
[2019-05-04 08:23] LABS: PTHIN 193.3 pg/mL (18.4-80.1)
== END | disposition home or self-care (01) ==
LOC: MTLAB 13:49
PROVIDERS: Internal Medicine Nephrology; PCP Family Medicine Geriatric Medicine; Referring Provider Internal Medicine Endocrinology, Diabetes & Metabolism; Visit Provider Internal Medicine Endocrinology, Diabetes & Metabolism
DX: E05.20 Thyrotoxicosis with toxic multinodular goiter without thyrotoxic crisis or storm (principal); E78.5 Hyperlipidemia, unspecified; N18.3 Chronic kidney disease, stage 3 (moderate); E55.9 Vitamin D deficiency, unspecified; N25.81 Secondary hyperparathyroidism of renal origin; E83.42 Hypomagnesemia
CPT/HCPCS: 36415; 80069; 82306; 83735; 83970; 84439; 84443; 84481; 85027; 87077; 87086; 87088; 87186

== ENCOUNTER → 2019-05-04 | Outpatient (CLI) | payer MEDICARE, BC, SELFPAY ==
[2019-04-22 14:01] VITALS: BMI 26.6
--- NOTE | 2019-05-04 11:29 | CT_ITS ---
STUDY: CT ABDOMEN AND PELVIS WITHOUT CONTRAST REASON FOR EXAM: Female, 78 years old. ABD PAIN, HX-GASTRIC LYMPHOMA, RENAL Insufficiency, htn, ARUNA G-appendectomy, hysterectomy, hernia, laparoscopy d/t bowel obstruction/adhesions, breast implants RADIATION DOSAGE (If Supplied By Facility): CTDIvol = ( 6.96 ) mGy, DLP = ( 313.11 ) mGycm TECHNIQUE: Transaxial images were obtained from the dome of the diaphragm to the symphysis pubis without oral contrast, and without intravenous contrast. Sagittal and coronal images were reconstructed. Individualized dose optimization techniques were used for this CT. COMPARISON: Comparison is made with prior study dated May 01, 2015. FINDINGS: Stable mild increased markings at the lung bases suggestive of scarring. Coronary artery calcification. Normal liver. Normal gallbladder and extrahepatic biliary system. There are multiple benign calcified granulomata of the spleen. Normal pancreas. Normal bilateral adrenal glands. Multiple bilateral renal cysts. These have increased in size as compared to prior study. Normal visualized stomach. Normal small intestine. Normal colon. There are surgical clips in the region of the appendix consistent with a prior appendectomy. There is diffuse atherosclerotic calcification of the abdominal aorta and the major visceral branches., without a demonstrated aneurysm. Normal inferior vena cava. Normal retroperitoneum. Normal urinary bladder. There is absence of the uterus consistent with a prior hysterectomy. Normal abdominal wall. There are diffuse degenerative changes of the visualized lumbar spine. 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 CT/Abdomen/Pelvis without Cont IMPRESSION: Increasing size of the bilateral renal cysts. Electronically Signed: Zane Weiner, at 14:29 EST , Service support ,
== END | disposition home or self-care (01) ==
LOC: CT 11:26
PROVIDERS: PCP Family Medicine Geriatric Medicine; Referring Provider Family Medicine Geriatric Medicine; Visit Provider Family Medicine Geriatric Medicine
DX: N18.3 Chronic kidney disease, stage 3 (moderate) (principal); R10.9 Unspecified abdominal pain
CPT/HCPCS: 74176; 81002; 82043; 82570; 84156

== ENCOUNTER → 2019-05-04 | Outpatient (CLI) | payer MEDICARE, BC, SELFPAY ==
[2019-04-22 14:01] VITALS: BMI 26.6
[2019-05-04 12:52] LABS: Color, Urine Yellow (Yellow); Glucose, Dipstick Normal (Normal); Ketone-Dipstick 5 mg/dl (Negative); Leukocyte Esterase-Dipstick 500 /ul (Negative); Nitrite-Dipstick Negative (Negative); Occult Blood-Urine 10 /ul (Negative); Protein-Dipstick 30 mg/dl (Negative); Urine Bilirubin Dipstick Negative (Negative); Urine Clarity Sl. Cloudy (Clear); Urine Urobilinogen Normal (Normal)
[2019-05-04 13:12] LABS: Microalbumin,Random Urine 97.4 mg/L (NO RANGE EST.); Microalbumin:Creatinine Ratio 34.7 mg/g CRE (<30 mg/g CRE); Protein, Urine (Random) 46.1 mg/dL (<11.9)
== END | disposition home or self-care (01) ==
LOC: POLAB3 08:55 → LABSPEC 09:04
PROVIDERS: PCP Family Medicine Geriatric Medicine; Visit Provider Internal Medicine Endocrinology, Diabetes & Metabolism
DX: N18.3 Chronic kidney disease, stage 3 (moderate) (principal)
CPT/HCPCS: 81002; 82043; 82570; 84156

== ENCOUNTER → 2019-05-18 | Outpatient (CLI) | payer MEDICARE, BC, SELFPAY ==
[2019-04-22 14:01] VITALS: BMI 26.6
[2019-05-18 15:36] LABS: T4 Free Direct 0.78 ng/dL (0.76-1.46); Thyroid Stim Hormone (TSH) 1.35 uIU/mL (0.358-3.74)
== END | disposition home or self-care (01) ==
LOC: MTLAB 14:02
PROVIDERS: PCP Family Medicine Geriatric Medicine; Referring Provider Internal Medicine Endocrinology, Diabetes & Metabolism; Visit Provider Internal Medicine Endocrinology, Diabetes & Metabolism
DX: E78.5 Hyperlipidemia, unspecified (principal); E05.20 Thyrotoxicosis with toxic multinodular goiter without thyrotoxic crisis or storm
CPT/HCPCS: 36415; 84439; 84443; 84481

== ENCOUNTER → 2019-05-27 | Outpatient (CLI) | payer MEDICARE, BC, SELFPAY ==
[2019-04-22 14:01] VITALS: BMI 26.6
[2019-05-27 10:19] LABS: 24 Hour Urine Protein 162.9 mg/24HR (<150 MG/24HR); 24HR. UA Prot. Total Volume 1225 mL; Urine Protein (24 Hour) 13.3 mg/dL (<11.9)
[2019-05-27 10:21] LABS: Anion Gap 6 (5-15); BUN 14 mg/dL (7-18); BUN/Creat Ratio 10.3 RATIO (10-20); Calcium,Total 9.1 mg/dL (8.5-10.1); Chloride 107 mmol/L (98-107); Creatinine, Serum 1.36 mg/dL (0.55-1.02); EST Glomerular Filtration Rate 40 mL/min (>60); Est Glom Filt Rate - Afr Amer 48 mL/min (>60); Glucose 79 mg/dL (74-106); Phosphorus 2.5 mg/dL (2.5-4.9); Potassium 3.5 mmol/L (3.5-5.1); Sodium Level 141 mmol/L (136-145)
[2019-05-27 10:24] LABS: PTHIN 151.3 pg/mL (18.4-80.1)
[2019-05-27 10:25] LABS: Vitamin D,25 Hydroxy 42.1 ng/mL
[2019-05-27 11:13] LABS: Creat.Clear Total Volume 1225 mL; Creatinine Clearance 292 ml/min (100-200); Creatinine Serum Creat 1.4 mg/dL (0.6-1.0); Creatinine Urine 77.9 mg/dL (NO RANGE EST.); EST Glomerular Filtration Rate 40 mL/min (>60); Est Glom Filt Rate - Afr Amer 48 mL/min (>60)
== END | disposition home or self-care (01) ==
LOC: MTLAB 09:03
PROVIDERS: PCP Family Medicine Geriatric Medicine; Referring Provider Internal Medicine; Visit Provider Internal Medicine
DX: N18.3 Chronic kidney disease, stage 3 (moderate) (principal); E55.9 Vitamin D deficiency, unspecified; N25.81 Secondary hyperparathyroidism of renal origin
CPT/HCPCS: 36415; 80048; 81050; 82306; 82575; 83970; 84100; 84156

== ENCOUNTER → 2019-06-02 | Outpatient (CLI) | payer MEDICARE, BC, SELFPAY ==
[2019-04-22 14:01] VITALS: BMI 26.6
[2019-06-02 17:47] LABS: Color, Urine Yellow (Yellow); Glucose, Dipstick Normal (Normal); Ketone-Dipstick Negative (Negative); Leukocyte Esterase-Dipstick Negative /ul (Negative); Nitrite-Dipstick Negative (Negative); Occult Blood-Urine Negative /ul (Negative); Protein-Dipstick Negative (Negative); Specific Gravity, Urine 1.015 (1.002-1.030); Urine Bilirubin Dipstick Negative (Negative); Urine Clarity Clear (Clear); Urine Urobilinogen Normal (Normal)
[2019-06-02 17:56] LABS: Protein, Urine (Random) 19.8 mg/dL (<11.9); Protein:Creat Ratio 161 mg/g CRE (0-200)
== END | disposition home or self-care (01) ==
LOC: LABSPEC 15:05
PROVIDERS: PCP Family Medicine Geriatric Medicine; Visit Provider Internal Medicine
DX: N18.3 Chronic kidney disease, stage 3 (moderate) (principal)
CPT/HCPCS: 81002; 82570; 84156

== ENCOUNTER → 2019-06-30 14:26 | Outpatient (CLI) | payer MEDICARE, BC, SELFPAY ==
[2019-04-22 14:01] VITALS: BMI 26.6
[2019-06-30 15:16] LABS: T4 Free Direct 0.97 ng/dL (0.76-1.46)
== END ==
PROVIDERS: PCP Family Medicine Geriatric Medicine; Referring Provider Internal Medicine Endocrinology, Diabetes & Metabolism; Visit Provider Internal Medicine Endocrinology, Diabetes & Metabolism
DX: E05.20 Thyrotoxicosis with toxic multinodular goiter without thyrotoxic crisis or storm (principal)
CPT/HCPCS: 36591; 84439; 84443; 84481; A4216

== ENCOUNTER → 2019-08-02 | Outpatient (CLI) | payer MEDICARE, BC, SELFPAY ==
[2019-07-26 09:54] VITALS: BMI 26.6
== END | disposition home or self-care (01) ==
LOC: LABSPEC 15:19
PROVIDERS: PCP Family Medicine Geriatric Medicine; Referring Provider Otolaryngology; Visit Provider Otolaryngology
DX: H92.10 Otorrhea, unspecified ear (principal)
CPT/HCPCS: 87070; 87075; 87077; 87186; 87205

== ENCOUNTER → 2019-08-03 | Outpatient (CLI) | payer MEDICARE, BC, SELFPAY ==
[2019-07-26 09:54] VITALS: BMI 26.6
[2019-08-03 15:16] LABS: Anion Gap 9 (5-15); BUN 19 mg/dL (7-18); BUN/Creat Ratio 13.1 RATIO (10-20); Calcium,Total 8.9 mg/dL (8.5-10.1); Chloride 109 mmol/L (98-107); Creatinine, Serum 1.45 mg/dL (0.55-1.02); EST Glomerular Filtration Rate 37 mL/min (>60); Est Glom Filt Rate - Afr Amer 45 mL/min (>60); Glucose 73 mg/dL (74-106); Magnesium 1.6 mg/dL (1.6-2.6); Potassium 3.8 mmol/L (3.5-5.1); Sodium Level 144 mmol/L (136-145)
== END | disposition home or self-care (01) ==
LOC: MTLAB 12:20
PROVIDERS: PCP Family Medicine Geriatric Medicine; Referring Provider Internal Medicine; Visit Provider Internal Medicine
DX: N18.3 Chronic kidney disease, stage 3 (moderate) (principal)
CPT/HCPCS: 36415; 80048; 83735

== ENCOUNTER → 2019-08-09 | Outpatient (CLI) | payer MEDICARE, BC, SELFPAY ==
[2019-04-22 14:01] VITALS: BMI 26.6
[2019-07-26 09:54] VITALS: BMI 26.6
--- NOTE | 2019-08-09 12:49 | CT_ITS ---
STUDY: CT SOFT TISSUE NECK WITH CONTRAST REASON FOR EXAM: Female, 79 years old. MONITORING NHL RADIATION DOSAGE (If Supplied By Facility): CTDIvol = ( 14.58 ) mGy, DLP = ( 819.07 ) mGycm TECHNIQUE: The patient was scanned in a multi-detector CT scanner. High resolution transaxial imaging was performed following intravenous administration of IV 100mL Isovue-300. Sagittal and coronal images were reconstructed. Individualized dose optimization techniques were used for this CT. COMPARISON: None. FINDINGS: Normal bilateral parotid glands. Normal bilateral curator of manuscripts spaces. Normal bilateral parapharyngeal spaces. Normal bilateral carotid spaces. Normal bilateral sublingual and submandibular glands and spaces. Normal visualized nasopharynx. Normal retropharyngeal space. Normal perivertebral space. Normal visualized bilateral faucial tonsils. The visualized tongue, tongue base and oropharynx are normal. The visualized cervical lymph nodes (levels I-) are within normal size limits, and maintain normal morphology. There is no demonstrated solid or cystic mass lesion. There is no abnormal contrast enhancement. No suspicious bulky, enlarged lymphadenopathy. Normal epiglottis, bilateral vallecula and hypopharynx. The pre-epiglottic and paraglottic adipose spaces are normal. Normal visualized bilateral piriform sinuses, aryepiglottic folds, vocal cords, and arytenoid-cricoid articulations. Normal subglottic trachea. Normal sized thyroid gland, there are scattered small low-density cysts. Normal visualized pulmonary apices. Normal visualized paranasal sinuses. There is multilevel degenerative changes of the cervical spine. On the very first image there is evidence of soft tissue mass in the right breast which may be lymphadenopathy. CT/Soft Tissue Neck WITH Contrast IMPRESSION: No suspicious enhancing lesion, airway narrowing or deviation. No suspicious enlarged lymphadenopathy. Thyroid cysts Degenerative bony changes Electronically Signed: Edgardo Mari MD at 13:52 EDT , Service support ,
--- NOTE | 2019-08-09 12:49 | CT_ITS ---
STUDY: CT CHEST WITH CONTRAST REASON FOR EXAM: Female, 79 years old. MONITORING NHL RADIATION DOSAGE (If Supplied By Facility): CTDIvol = ( 14.58 ) mGy, DLP = ( 819.07 ) mGycm TECHNIQUE: Transaxial imaging was performed following intravenous administration of IV 100mL Isovue-300. Individualized dose optimization techniques were used for this CT. COMPARISON: 09/30/2016 FINDINGS: Right subclavian chest port. The lungs are normal. There is no demonstrated pleural abnormality. Normal heart and pericardium. Normal mediastinum. Normal hilar regions. Normal enhanced pulmonary arteries. Normal aorta arch and descending thoracic aorta. Normal osseous structures. There is no demonstrated abnormality of the visualized upper abdomen. CT/Chest WITH Contrast IMPRESSION: No CT evidence of the lymphoma. Electronically Signed: Derrick Caballero MD at 13:52 EDT Tel , Service support ,
[2019-08-09] MEDS: 0.9% Saline Lock 10 ML Syringe IV (13:20)
== END | disposition home or self-care (01) ==
LOC: CT 12:49
PROVIDERS: PCP Family Medicine Geriatric Medicine; Referring Provider Internal Medicine Medical Oncology; Visit Provider Internal Medicine Medical Oncology
DX: C88.4 Extranodal marginal zone B-cell lymphoma of mucosa-associated lymphoid tissue [MALT-lymphoma] (principal)
CPT/HCPCS: 70491; 71260; Q9967; A4216

== ENCOUNTER → 2019-09-07 | Outpatient (CLI) | payer MEDICARE, BC, SELFPAY ==
[2019-08-12 14:39] VITALS: BMI 27.8
[2019-09-07 15:53] LABS: Absolute Lymphocyte Count 2.04 X10^3/uL (0.83-4.51); Absolute Neutrophil Count 3.9 X10^3/uL (2.0-7.7); Basophil# 0.06 X10^3/uL; Basophil% 0.9 % (0-1); Eosinophil# 0.14 X10^3/uL; Eosinophils% 2.1 % (0-5); Hematocrit 43.5 % (37-47); Lymphocyte # 2.04 X10^3/ul (4.0); Lymphocyte % 30.2 % (19-41); Mean Corp Hgb Conc 32.2 g/dL (32-36); Mean Corpuscular Volume 96.5 fL (81-99); Mean Platelet Vol. 12.8 fl (6.2-12.0); Monocyte# 0.58 X10^3/uL; Monocyte% 8.6 % (0-10); NRBC Flagged by Analyzer 0 % (0-5); Neutrophil # 3.91 X10^3/uL (2.7-7.7); Neutrophil % 57.8 % (47-70); Platelet Count 227 K/mm3 (150-450); RBC Distribution Width CV 13.9 % (11.6-14.6); RBC Distribution Width SD 49.2 fl (35.1-43.9); Red Blood Count 4.51 M/mm3 (4.2-5.4); White Blood Count 6.8 K/mm3 (4.4-11.0)
[2019-09-07 16:11] LABS: Vitamin D,25 Hydroxy 51.7 ng/mL
[2019-09-07 16:17] LABS: ALB/GLOB Ratio 0.8 RATIO (0.9-2.4); AST(SGOT) 12 U/L (15-37); Alanine Aminotransfer ALT/SGPT 16 U/L (13-56); Albumin, Serum 3.2 g/dL (3.2-5.0); Alkaline Phosphatase 167 U/L (45-117); Anion Gap 6 (5-15); BUN 12 mg/dL (7-18); BUN/Creat Ratio 8.8 RATIO (10-20); Calcium,Total 8.9 mg/dL (8.5-10.1); Chloride 106 mmol/L (98-107); Creatinine, Serum 1.36 mg/dL (0.55-1.02); EST Glomerular Filtration Rate 40 mL/min (>60); Est Glom Filt Rate - Afr Amer 48 mL/min (>60); Globulin 4.1 g/dL (2.2-4.2); Glucose 94 mg/dL (74-106); Potassium 4.3 mmol/L (3.5-5.1); Protein, Total 7.3 g/dL (6.4-8.2); Sodium Level 140 mmol/L (136-145); Thyroid Stim Hormone (TSH) 0.43 uIU/mL (0.358-3.74); Uric Acid 9.5 mg/dL (2.6-6.0)
== END | disposition home or self-care (01) ==
LOC: POLAB3 13:55
PROVIDERS: PCP Family Medicine Geriatric Medicine; Visit Provider Family Medicine Geriatric Medicine
DX: E55.9 Vitamin D deficiency, unspecified (principal); I10 Essential (primary) hypertension; M10.9 Gout, unspecified
CPT/HCPCS: 36415; 80053; 82306; 84443; 84550; 85025

== ENCOUNTER → 2019-11-26 | Outpatient (CLI) | payer MEDICARE, BC, SELFPAY ==
[2019-07-26 09:54] VITALS: BMI 26.6
[2019-08-12 14:39] VITALS: BMI 27.8
--- NOTE | 2019-11-26 14:32 | US_ITS ---
STUDY: RENAL ULTRASOUND - COMPLETE REASON FOR EXAM: Female, 79 years old. ckd 3 TECHNIQUE: Ultrasound evaluation of the kidneys was performed with real-time and static bae-scale imaging. COMPARISON: None. FINDINGS: RIGHT KIDNEY: Normal location of the right kidney, which is normal in size. The right kidney measures 10.4 x 5.3 x 3.8 cm. There is a normal cortex of the right kidney. The renal cortex measures 1.0 cm. Numerous cystic lesions are noted with the largest measuring 3.4 cm with septations. There are no right renal calculi. There is no right hydronephrosis. DISTAL RIGHT URETER: There is non-visualization of the distal right ureter. There is no demonstrated right ureterovesical junction calculus. There is a visualized right ureteral jet. LEFT KIDNEY: Normal location of the left kidney, which is normal in size. The left kidney measures 12.2 x 5.3 x 5.3 cm. There is a normal cortex of the left kidney. The renal cortex measures 1.5 cm. There numerous cysts with the largest measuring up to 6.6 cm in maximum size this a complex partially septated cystic lesion measuring 4.9 cm in size. There are no left renal calculi. There is no left hydronephrosis. DISTAL LEFT URETER: There is non-visualization of the distal left ureter. There is no demonstrated left ureterovesical junction calculus. There is a visualized left ureteral jet. BLADDER: The distended urinary bladder has a volume of 184 ml. There is slightly increased wall thickness of the distended urinary bladder measuring 4.7 mm. There is no demonstrated mass within the urinary bladder. There are no demonstrated bladder calculi. US/Kidney and Bladder IMPRESSION: Bilateral numerous cystic nodules are noted of the kidneys. Mild wall thickening of the urinary bladder. Electronically Signed: Roel Tavares DO at 18:00 EDT Tel [phone], Service support ,
== END | disposition home or self-care (01) ==
LOC: US 14:30
PROVIDERS: PCP Family Medicine Geriatric Medicine; Referring Provider Internal Medicine; Visit Provider Internal Medicine
DX: N18.3 Chronic kidney disease, stage 3 (moderate) (principal)
CPT/HCPCS: 76770

== ENCOUNTER → 2020-03-08 13:04 | Outpatient (CLI) | payer MEDICARE, SELFPAY ==
[2019-08-12 14:39] VITALS: BMI 27.8
[2020-03-08 17:33] LABS: Absolute Lymphocyte Count 1.39 X10^3/uL (0.83-4.51); Absolute Neutrophil Count 3.7 X10^3/uL (2.0-7.7); Basophil# 0.06 X10^3/uL; Eosinophil# 0.09 X10^3/uL; Eosinophils% 1.6 % (0-5); Hematocrit 43.6 % (37-47); Hemoglobin 13.9 g/dL (12.0-15.0); Lymphocyte # 1.39 X10^3/ul (4.0); Lymphocyte % 24.1 % (19-41); Mean Corp Hgb Conc 31.9 g/dL (32-36); Mean Corpuscular Volume 97.3 fL (81-99); Mean Platelet Vol. 11.8 fl (6.2-12.0); Monocyte# 0.51 X10^3/uL; Monocyte% 8.8 % (0-10); NRBC Flagged by Analyzer 0 % (0-5); Neutrophil % 64.2 % (47-70); Platelet Count 284 K/mm3 (150-450); RBC Distribution Width CV 13.2 % (11.6-14.6); RBC Distribution Width SD 47.6 fl (35.1-43.9); Red Blood Count 4.48 M/mm3 (4.2-5.4); White Blood Count 5.8 K/mm3 (4.4-11.0)
[2020-03-08 17:48] LABS: Vitamin D,25 Hydroxy 50.6 ng/mL
[2020-03-08 17:52] LABS: ALB/GLOB Ratio 0.8 RATIO (0.9-2.4); AST(SGOT) 24 U/L (15-37); Alanine Aminotransfer ALT/SGPT 34 U/L (13-56); Albumin, Serum 3.1 g/dL (3.2-5.0); Alkaline Phosphatase 146 U/L (45-117); Anion Gap 6 (5-15); BUN 15 mg/dL (7-18); BUN/Creat Ratio 10.9 RATIO (10-20); Calcium,Total 8.8 mg/dL (8.5-10.1); Chloride 104 mmol/L (98-107); Creatinine, Serum 1.38 mg/dL (0.55-1.02); EST Glomerular Filtration Rate 39 mL/min (>60); Est Glom Filt Rate - Afr Amer 47 mL/min (>60); Free T3 2.8 pg/mL (2.18-3.98); Glucose 88 mg/dL (74-106); Potassium 4.1 mmol/L (3.5-5.1); Protein, Total 7.1 g/dL (6.4-8.2); Sodium Level 136 mmol/L (136-145); T4 Free Direct 1.18 ng/dL (0.76-1.46); Thyroid Stim Hormone (TSH) 0.51 uIU/mL (0.358-3.74); Uric Acid 9.2 mg/dL (2.6-6.0)
== END ==
PROVIDERS: Internal Medicine Endocrinology, Diabetes & Metabolism; PCP Family Medicine Geriatric Medicine; Visit Provider Family Medicine Geriatric Medicine
DX: E05.20 Thyrotoxicosis with toxic multinodular goiter without thyrotoxic crisis or storm (principal); E55.9 Vitamin D deficiency, unspecified; M10.9 Gout, unspecified; I10 Essential (primary) hypertension
CPT/HCPCS: 36415; 80053; 82306; 84439; 84443; 84481; 84550; 85025

== ENCOUNTER 2020-04-14 12:43 | Outpatient (RCR) | payer MEDICARE, SELFPAY ==
[2019-08-12 14:39] VITALS: BMI 27.8
== END 2020-04-14 23:59 ==
LOC: IMMUN 12:43
PROVIDERS: PCP Family Medicine Geriatric Medicine; Referring Provider Family Medicine; Visit Provider Family Medicine
DX: Z23 Encounter for immunization (principal)
CPT/HCPCS: 0011A; 0012A

== ENCOUNTER → 2020-06-23 15:08 | Outpatient (CLI) | payer MEDICARE, SELFPAY ==
[2019-08-12 14:39] VITALS: BMI 27.8
[2020-06-23 17:42] LABS: Anion Gap 5 (5-15); BUN 15 mg/dL (7-18); BUN/Creat Ratio 10.8 RATIO (10-20); Calcium,Total 8.8 mg/dL (8.5-10.1); Chloride 103 mmol/L (98-107); Color, Urine Yellow (Yellow); Creatinine, Serum 1.39 mg/dL (0.55-1.02); EST Glomerular Filtration Rate 39 mL/min (>60); Est Glom Filt Rate - Afr Amer 47 mL/min (>60); Glucose 83 mg/dL (74-106); Glucose, Dipstick Normal (Normal); Ketone-Dipstick Negative (Negative); Leukocyte Esterase-Dipstick 25 /ul (Negative); Nitrite-Dipstick Negative (Negative); Occult Blood-Urine Negative /ul (Negative); Phosphorus 2.8 mg/dL (2.5-4.9); Potassium 4.1 mmol/L (3.5-5.1); Protein-Dipstick Negative (Negative); Sodium Level 135 mmol/L (136-145); Urine Bilirubin Dipstick Negative (Negative); Urine Clarity Clear (Clear); Urine Urobilinogen Normal (Normal); Urine pH 6.5 (5.0 - 8.0)
[2020-06-23 17:59] LABS: Protein, Urine (Random) < 6.0 mg/dL (<11.9)
[2020-06-24 08:16] LABS: PTHIN 187.8 pg/mL (18.4-80.1)
== END ==
PROVIDERS: PCP Family Medicine Geriatric Medicine; Referring Provider Internal Medicine; Visit Provider Internal Medicine
DX: N18.30 Chronic kidney disease, stage 3 unspecified (principal); R80.9 Proteinuria, unspecified; N25.81 Secondary hyperparathyroidism of renal origin
CPT/HCPCS: 36415; 80048; 81002; 82570; 83970; 84100; 84156

== ENCOUNTER → 2020-09-06 15:20 | Outpatient (CLI) | payer MEDICARE, SELFPAY ==
[2020-08-10 14:12] VITALS: BMI 26.1
[2020-09-06 16:50] LABS: Absolute Lymphocyte Count 0.68 X10^3/uL (0.83-4.51); Absolute Neutrophil Count 5.2 X10^3/uL (2.0-7.7); Basophil# 0.06 X10^3/uL; Basophil% 0.9 % (0-1); Eosinophil# 0.14 X10^3/uL; Eosinophils% 2.1 % (0-5); Hematocrit 41.4 % (37-47); Hemoglobin 13.5 g/dL (12.0-15.0); Lymphocyte # 0.68 X10^3/ul (0.83-4.51); Mean Corp Hgb Conc 32.6 g/dL (32-36); Mean Corpuscular Hgb 32.1 pg (27.0-32.0); Mean Corpuscular Volume 98.6 fL (81-99); Mean Platelet Vol. 12.3 fl (6.2-12.0); Monocyte# 0.69 X10^3/uL; Monocyte% 10.2 % (0-10); NRBC Flagged by Analyzer 0 % (0-5); Neutrophil # 5.19 X10^3/uL (2.7-7.7); Neutrophil % 76.4 % (47-70); Platelet Count 269 K/mm3 (150-450); White Blood Count 6.8 K/mm3 (4.4-11.0)
[2020-09-06 16:55] LABS: Vitamin D,25 Hydroxy 67.8 ng/mL
[2020-09-06 17:04] LABS: ALB/GLOB Ratio 0.7 RATIO (0.9-2.4); AST(SGOT) 16 U/L (15-37); Alanine Aminotransfer ALT/SGPT 18 U/L (13-56); Albumin, Serum 2.9 g/dL (3.2-5.0); Alkaline Phosphatase 140 U/L (45-117); Anion Gap 8 (5-15); BUN 7 mg/dL (7-18); Calcium,Total 8.7 mg/dL (8.5-10.1); Chloride 100 mmol/L (98-107); EST Glomerular Filtration Rate 38 mL/min (>60); Est Glom Filt Rate - Afr Amer 46 mL/min (>60); Globulin 4.1 g/dL (2.2-4.2); Glucose 77 mg/dL (74-106); Potassium 4.1 mmol/L (3.5-5.1); Sodium Level 135 mmol/L (136-145); Thyroid Stim Hormone (TSH) 0.75 uIU/mL (0.358-3.74); Uric Acid 9.9 mg/dL (2.6-6.0)
== END ==
PROVIDERS: PCP Family Medicine Geriatric Medicine; Visit Provider Family Medicine Geriatric Medicine
DX: E55.9 Vitamin D deficiency, unspecified (principal); I10 Essential (primary) hypertension; M10.9 Gout, unspecified
CPT/HCPCS: 36415; 80053; 82306; 84443; 84550; 85025

== ENCOUNTER → 2020-11-15 10:42 | Outpatient (CLI) | payer MEDICARE, SELFPAY ==
--- NOTE | 2020-11-15 10:50 | RAD_ITS ---
STUDY: X-RAY - CERVICAL SPINE REASON FOR EXAM: Female, 80 years old. NECK PAIN TECHNIQUE: view(s) of the cervical spine were obtained. COMPARISON: None FINDINGS: There are degenerative changes of the anterior atlantoaxial articulation. Normal odontoid process. There is straightening of the normal cervical lordosis. There is multi-level endplate spondylosis. Normal visualized intervertebral neuroforamina. There are atherosclerotic vascular calcifications of the carotid arteries. RAD/Cerv Spine 2 or 3 Views IMPRESSION: Multilevel spondylosis and disc space narrowing. Straightening of the normal cervical lordosis. Calcification of the carotid bifurcations bilaterally. Electronically Signed: Zane Weiner MD at 12:17 EDT , Service support ,
[2020-11-15 12:45] LABS: Absolute Lymphocyte Count 0.63 X10^3/uL (0.83-4.51); Absolute Neutrophil Count 5.3 X10^3/uL (2.0-7.7); Basophil# 0.06 X10^3/uL; Basophil% 0.9 % (0-1); Eosinophil# 0.17 X10^3/uL; Eosinophils% 2.5 % (0-5); Hematocrit 39.6 % (37-47); Hemoglobin 12.7 g/dL (12.0-15.0); Lymphocyte # 0.63 X10^3/ul (0.83-4.51); Lymphocyte % 9.1 % (19-41); Mean Corp Hgb Conc 32.1 g/dL (32-36); Mean Corpuscular Hgb 32.4 pg (27.0-32.0); Mean Platelet Vol. 11.6 fl (6.2-12.0); Monocyte# 0.76 X10^3/uL; NRBC Flagged by Analyzer 0 % (0-5); Neutrophil # 5.25 X10^3/uL (2.7-7.7); Neutrophil % 76.1 % (47-70); Platelet Count 299 K/mm3 (150-450); RBC Distribution Width CV 14.7 % (11.6-14.6); RBC Distribution Width SD 54.5 fl (35.1-43.9); Red Blood Count 3.92 M/mm3 (4.2-5.4); White Blood Count 6.9 K/mm3 (4.4-11.0)
[2020-11-15 13:26] LABS: ALB/GLOB Ratio 0.8 RATIO (0.9-2.4); AST(SGOT) 21 U/L (15-37); Alanine Aminotransfer ALT/SGPT 30 U/L (13-56); Albumin, Serum 3.2 g/dL (3.2-5.0); Alkaline Phosphatase 134 U/L (45-117); Anion Gap 5 (5-15); BUN 14 mg/dL (7-18); Calcium,Total 9.3 mg/dL (8.5-10.1); Chloride 105 mmol/L (98-107); Creatinine, Serum 1.27 mg/dL (0.55-1.02); EST Glomerular Filtration Rate 43 mL/min (>60); Est Glom Filt Rate - Afr Amer 52 mL/min (>60); Globulin 4.2 g/dL (2.2-4.2); Glucose 84 mg/dL (74-106); Potassium 3.9 mmol/L (3.5-5.1); Protein, Total 7.4 g/dL (6.4-8.2); Sodium Level 138 mmol/L (136-145); Thyroid Stim Hormone (TSH) 0.86 uIU/mL (0.358-3.74)
== END ==
PROVIDERS: PCP Family Medicine Geriatric Medicine; Referring Provider Family Medicine Geriatric Medicine; Visit Provider Family Medicine Geriatric Medicine
DX: M54.2 Cervicalgia (principal); N39.0 Urinary tract infection, site not specified; R53.83 Other fatigue
CPT/HCPCS: 36415; 72040; 80053; 84443; 85025; 87086; 87088

== ENCOUNTER → 2020-12-20 12:32 | Outpatient (CLI) | payer MEDICARE, SELFPAY ==
[2020-12-20 15:15] LABS: Color, Urine Yellow (Yellow); Glucose, Dipstick Normal (Normal); Ketone-Dipstick Negative (Negative); Leukocyte Esterase-Dipstick 25 /ul (Negative); Nitrite-Dipstick Negative (Negative); Occult Blood-Urine Negative /ul (Negative); Protein-Dipstick 30 mg/dl (Negative); Specific Gravity, Urine 1.015 (1.002-1.030); Urine Bilirubin Dipstick Negative (Negative); Urine Clarity Clear (Clear); Urine Urobilinogen Normal (Normal)
[2020-12-20 15:35] LABS: Protein, Urine (Random) 37.6 mg/dL (<11.9); Protein:Creat Ratio 261 mg/g CRE (0-200)
[2020-12-20 15:38] LABS: Vitamin D,25 Hydroxy 60.7 ng/mL
[2020-12-20 15:40] LABS: PTHIN 145.2 pg/mL (18.4-80.1)
[2020-12-20 15:41] LABS: Anion Gap 9 (5-15); BUN 7 mg/dL (7-18); BUN/Creat Ratio 6.2 RATIO (10-20); Calcium,Total 9.1 mg/dL (8.5-10.1); Chloride 102 mmol/L (98-107); Creatinine, Serum 1.13 mg/dL (0.55-1.02); EST Glomerular Filtration Rate 49 mL/min (>60); Est Glom Filt Rate - Afr Amer 59 mL/min (>60); Glucose 89 mg/dL (74-106); Potassium 3.5 mmol/L (3.5-5.1); Sodium Level 137 mmol/L (136-145)
== END ==
PROVIDERS: PCP Family Medicine Geriatric Medicine; Referring Provider Internal Medicine; Visit Provider Internal Medicine
DX: N18.30 Chronic kidney disease, stage 3 unspecified (principal); R80.9 Proteinuria, unspecified; E55.9 Vitamin D deficiency, unspecified; N25.81 Secondary hyperparathyroidism of renal origin
CPT/HCPCS: 36415; 80048; 81002; 82306; 82570; 83970; 84100; 84156

== ENCOUNTER → 2021-03-12 11:12 | Outpatient (CLI) | payer MEDICARE, SELFPAY ==
[2021-03-12 12:47] LABS: Absolute Lymphocyte Count 0.66 X10^3/uL (0.83-4.51); Absolute Neutrophil Count 6.8 X10^3/uL (2.0-7.7); Basophil# 0.04 X10^3/uL; Basophil% 0.5 % (0-1); Eosinophil# 0.13 X10^3/uL; Eosinophils% 1.6 % (0-5); Hematocrit 36.6 % (37-47); Hemoglobin 11.9 g/dL (12.0-15.0); Lymphocyte # 0.66 X10^3/ul (0.83-4.51); Lymphocyte % 7.9 % (19-41); Mean Corp Hgb Conc 32.5 g/dL (32-36); Mean Corpuscular Hgb 32.3 pg (27.0-32.0); Mean Corpuscular Volume 99.5 fL (81-99); Mean Platelet Vol. 11.2 fl (6.2-12.0); Monocyte# 0.62 X10^3/uL; Monocyte% 7.5 % (0-10); NRBC Flagged by Analyzer 0 % (0-5); Neutrophil # 6.79 X10^3/uL (2.7-7.7); Neutrophil % 81.5 % (47-70); Platelet Count 348 K/mm3 (150-450); RBC Distribution Width CV 13.4 % (11.6-14.6); RBC Distribution Width SD 49.1 fl (35.1-43.9); Red Blood Count 3.68 M/mm3 (4.2-5.4); White Blood Count 8.3 K/mm3 (4.4-11.0)
[2021-03-12 12:54] LABS: Vitamin D,25 Hydroxy 61.4 ng/mL
[2021-03-12 13:03] LABS: ALB/GLOB Ratio 0.6 RATIO (0.9-2.4); AST(SGOT) 17 U/L (15-37); Alanine Aminotransfer ALT/SGPT 18 U/L (13-56); Albumin, Serum 2.6 g/dL (3.2-5.0); Alkaline Phosphatase 132 U/L (45-117); Anion Gap 6 (5-15); BUN 10 mg/dL (7-18); BUN/Creat Ratio 7.6 RATIO (10-20); Calcium,Total 8.5 mg/dL (8.5-10.1); Chloride 100 mmol/L (98-107); Creatinine, Serum 1.32 mg/dL (0.55-1.02); EST Glomerular Filtration Rate 41 mL/min (>60); Est Glom Filt Rate - Afr Amer 50 mL/min (>60); Glucose 76 mg/dL (74-106); Protein, Total 6.6 g/dL (6.4-8.2); Sodium Level 136 mmol/L (136-145); Uric Acid 7.3 mg/dL (2.6-6.0)
--- NOTE | 2021-03-12 14:26 | VDLE_ITS ---
Reason For Study: Edema RIGHT LEFT GSV is normal. CFV is compressible, spontaneous, phasic, CFV is compressible, spontaneous, phasic, competent, and demonstrates normal competent and demonstrates normal augmentation. augmentation. FV is compressible, spontaneous, phasic, competent and demonstrates normal augmentation. POP V is compressible, spontaneous, phasic, competent and demonstrates normal augmentation. T/P Trunk is compressible. PTV is compressible. Rt GastrocV and Rt PeroV are dilated and non compressible consistent with acute DVT. Procedure This is a venous duplex using B-mode, color flow and spectral Doppler. Exam performed in department. A preliminary report was called and/or faxed to [facility]. VL/Venous Duplex US, Unilateral Interpretation Summary Acute deep vein thrombosis is noted in the right peroneal vein. Acute deep vein thrombosis is noted in the right gastrocnemius vein. The remainder of the right lower extremity adri p venous system is patent and compressible. Valvular competence appears intact within the proximal deep venous system on the right . The right great saphenous vein appears patent and compressible s egmentally. Ordering Physician: Kayden Lan Chi Referring Physician: Kayden Lan Chi Performed By: Noni Charles, VIJAY, RVT
== END ==
LOC: POLAB3 14:24 → CVS 14:25
PROVIDERS: PCP Family Medicine Geriatric Medicine; Referring Provider Family Medicine Geriatric Medicine; Visit Provider Family Medicine Geriatric Medicine
DX: R60.0 Localized edema (principal); F52.8 Other sexual dysfunction not due to a substance or known physiological condition; I10 Essential (primary) hypertension; M10.9 Gout, unspecified; E55.9 Vitamin D deficiency, unspecified
CPT/HCPCS: 36415; 80053; 82306; 84443; 84550; 85025; 93971

== ENCOUNTER 2021-04-09 12:04 | Outpatient (CLI) | payer MEDICARE, SELFPAY ==
[2021-04-09 15:33] LABS: Vitamin B12 819 pg/mL (211-911)
[2021-04-19 17:07] LABS: Free Kappa Light Chains 58.3 mg/L (3.3-19.4); Free Lambda Light Chains 45.2 mg/L (5.7-26.3)
[2021-04-19 21:46] LABS: Vitamin B1, Thiamine 76.7 nmol/L (66.5-200.0)
== END 2021-04-09 23:59 | disposition short-term general hospital (02) ==
LOC: MTLAB 12:05
PROVIDERS: PCP Family Medicine Geriatric Medicine; Referring Provider Psychiatry & Neurology Neurology; Visit Provider Psychiatry & Neurology Neurology
DX: G62.9 Polyneuropathy, unspecified (principal)
CPT/HCPCS: 36415; 82607; 82746; 83883; 84425

== ENCOUNTER 2021-05-02 15:30 | Outpatient (CLI) | payer MEDICARE, SELFPAY ==
--- NOTE | 2021-05-02 15:33 | MRI_ITS ---
ACR Level 3 findings have been noted. An addendum which confirms receipt of the report will follow. STUDY: MRI BRAIN WITH AND WITHOUT CONTRAST REASON FOR EXAM: Female, 80 years old. Chorea, Hx of Stroke TECHNIQUE: Standardized multiplanar fat and water weighted pulse sequences were obtained. IV 10 CC DOTAREM was administered for the contrast portion of the examination. COMPARISON: None. FINDINGS: Normal size of the ventricles and extra-axial spaces for the patient''s age. There are a limited number of small white matter hyperintensities, distributed throughout the deep white matter tracts of the cerebral hemispheres, consistent with mild chronic white matter ischemic changes. There is high T1 signal lesion in the head of the right caudate nucleus with susceptibility artifact suggesting subacute hemorrhage measuring 9 mm in greatest diameter. Normal thalami. There is no extra-axial fluid accumulation. Normal flow voids within the major intracranial circulation suggesting patency by spin echo criteria. Normal venous enhancement. There is no enhancing intra-axial or extra-axial abnormality. Normal sella turcica, pituitary gland, infundibular stalk, optic chiasm and hypothalamus. Normal tectal plate and pineal gland. Normal midbrain, espinoza and medulla. Normal cerebellum. Normal basal cisterns. Normal bilateral temporal bones. Normal bilateral internal auditory canals. No demonstrated orbital abnormality, within the constraints of a routine brain study. Normal visualized paranasal sinuses. Normal calvarium and skull base. Normal visualized soft tissue structures. Normal visualized upper cervical spine. MRI/Brain W/WO Contrast IMPRESSION: Possible small subacute hemorrhage in the head of the right caudate nucleus may be secondary to lacunar infarct. Follow-up CT scan is recommended to ensure stability. Electronically Signed: Miesha Yee MD at 3:04 EST ,
--- NOTE | 2021-05-02 16:00 | MRI_ITS ---
STUDY: MRI LUMBAR SPINE WITHOUT CONTRAST REASON FOR EXAM: Female, 80 years old. Low Back Pain TECHNIQUE: Standardized fat and water weighted pulse sequences were obtained in the sagittal and axial planes. COMPARISON: 03/03/2020 FINDINGS: T12-L1: Normal endplates. Normal disc height, hydration and morphology. Normal bilateral facet joints. Normal central canal and bilateral lateral recesses. Normal bilateral intervertebral neural foramina. Normal lumbar lordosis. There is no substantial scoliosis. Normal conus medullaris that terminates at the L1 level. L1-2: Normal endplates. Normal disc height, hydration and morphology. Normal bilateral facet joints. Normal central canal and bilateral lateral recesses. Normal bilateral intervertebral neural foramina. L2-3: Normal endplates. Normal disc height, hydration and morphology. Normal bilateral facet joints. Normal central canal and bilateral lateral recesses. Normal bilateral intervertebral neural foramina. L3-4, L4-5, L5-S1: Endplate spondylosis. 5 mm spondylolisthesis. Decreased disc height and small circumferential disc bulge. Degenerative changes of the bilateral facet joints. Moderate narrowing of the central canal and bilateral intervertebral neural foramina. Normal visualized sacral ala. Multiple bilateral renal cysts the largest measures 7 cm. MRI/Spine Lumbar (Routine) IMPRESSION: Multilevel degenerative changes, as described above. Electronically Signed: Miesha Yee MD at 5:12 EST ,
[2021-05-02 16:06] LABS: CREATININE FINGERSTICK 1.8 mg/dL (0.55-1.02)
--- NOTE | 2021-05-02 16:38 | MRI_ITS ---
STUDY: MRI CERVICAL SPINE WITHOUT CONTRAST REASON FOR EXAM: Female, 80 years old. Neck pain TECHNIQUE: Standardized fat and water weighted pulse sequences were obtained in the sagittal and axial planes. COMPARISON: 11/15/2020 FINDINGS: Normal foramen magnum and brainstem-cervical cord junction. Normal craniovertebral junction. Normal anterior atlantoaxial articulation. Normal odontoid process. Normal cervical lordosis. Normal vertebral bodies and posterior osseous elements. C2-3, C3-4: There is mild degenerative disc disease. Mild degenerative hypertrophic changes in the left facet joint results in mild narrowing of the left neuroforamina at both levels. 2 mm spondylolisthesis at C3-4. C4-5, C5-6 and C6-7: Endplate spondylosis. Central and paracentral disc bulge. Degenerative changes of the bilateral facet joints and uncovertebral joints. Moderate narrowing of the central canal and the bilateral intervertebral neural foramina. There is 2 mm spondylolisthesis at C4-5. C7-T1: Endplate spondylosis. Central and paracentral disc bulge. Degenerative changes of the bilateral facet joints. Mild narrowing of the central canal and the bilateral intervertebral neural foramina. Normal cervical cord. Normal visualized soft tissue structures. MRI/Spine Cervical (Routine) IMPRESSION: Multilevel degenerative changes, as described above. Electronically Signed: Miesha Yee MD at 4:16 EST ,
== END 2021-05-02 23:59 | disposition home or self-care (01) ==
PROVIDERS: PCP Family Medicine Geriatric Medicine; Visit Provider Psychiatry & Neurology Neurology
DX: G25.5 Other chorea (principal); M54.2 Cervicalgia; M54.50 Low back pain, unspecified; Z86.73 Personal history of transient ischemic attack (TIA), and cerebral infarction without residual deficits
CPT/HCPCS: 70553; 72141; 72148; A9575

== ENCOUNTER 2021-05-15 15:11 | Outpatient (CLI) | payer MEDICARE, SELFPAY ==
[2021-05-15 16:10] LABS: Absolute Lymphocyte Count 0.51 X10^3/uL (0.83-4.51); Absolute Neutrophil Count 9.6 X10^3/uL (2.0-7.7); Basophil# 0.04 X10^3/uL; Basophil% 0.4 % (0-1); Eosinophil# 0.01 X10^3/uL; Eosinophils% 0.1 % (0-5); Hematocrit 25.6 % (37-47); Hemoglobin 8.3 g/dL (12.0-15.0); Lymphocyte # 0.51 X10^3/ul (0.83-4.51); Lymphocyte % 4.6 % (19-41); Mean Corp Hgb Conc 32.4 g/dL (32-36); Mean Corpuscular Hgb 31.1 pg (27.0-32.0); Mean Corpuscular Volume 95.9 fL (81-99); Mean Platelet Vol. 12.2 fl (6.2-12.0); Monocyte# 0.95 X10^3/uL; Monocyte% 8.5 % (0-10); NRBC Flagged by Analyzer 0 % (0-5); Neutrophil # 9.64 X10^3/uL (2.7-7.7); POSITIVE DIFFERENTIAL YES; Platelet Count 256 K/mm3 (150-450); RBC Distribution Width CV 14.6 % (11.6-14.6); RBC Distribution Width SD 51.8 fl (35.1-43.9); Red Blood Count 2.67 M/mm3 (4.2-5.4); White Blood Count 11.2 K/mm3 (4.4-11.0)
[2021-05-15 16:14] LABS: Differential Indicated SCAN CRITERIA MET
[2021-05-15 16:45] LABS: Anisocytosis 1+; Hypochromasia 2+; Platelet Estimate ADEQUATE (ADEQ); Red Cell Morphology N CHROM NORMAL (NORM C&C)
[2021-05-15 16:46] LABS: Macrocytosis 1+
[2021-05-15 16:51] LABS: ALB/GLOB Ratio 0.6 RATIO (0.9-2.4); AST(SGOT) 25 U/L (15-37); Alanine Aminotransfer ALT/SGPT 19 U/L (13-56); Albumin, Serum 2.5 g/dL (3.2-5.0); Alkaline Phosphatase 117 U/L (45-117); Amylase 7 U/L (25-115); Anion Gap 7 (5-15); BUN 29 mg/dL (7-18); BUN/Creat Ratio 15.5 RATIO (10-20); Calcium,Total 8.7 mg/dL (8.5-10.1); Chloride 96 mmol/L (98-107); Creatinine, Serum 1.87 mg/dL (0.55-1.02); EST Glomerular Filtration Rate 27 mL/min (>60); Est Glom Filt Rate - Afr Amer 33 mL/min (>60); Globulin 4.1 g/dL (2.2-4.2); Glucose 116 mg/dL (74-106); Lipase 11 U/L (73-393); Potassium 3.8 mmol/L (3.5-5.1); Protein, Total 6.6 g/dL (6.4-8.2); Sodium Level 132 mmol/L (136-145)
== END 2021-05-15 23:59 | disposition home or self-care (01) ==
LOC: POLAB3 15:12
PROVIDERS: PCP Family Medicine Geriatric Medicine; Visit Provider Family Medicine Geriatric Medicine
DX: R10.9 Unspecified abdominal pain (principal)
CPT/HCPCS: 36415; 80053; 82150; 83690; 85025

== ENCOUNTER 2021-05-15 17:18 | Outpatient (CLI) | payer MEDICARE, SELFPAY ==
--- NOTE | 2021-05-15 17:24 | CT_ITS ---
We are attempting to reach an attending provider to discuss findings. An addendum with communication details will be sent when the communication is complete. STUDY: CT ABDOMEN AND PELVIS WITH CONTRAST REASON FOR EXAM: Female, 80 years old. Post fall. Patient on blood thinners. RADIATION DOSAGE (If Supplied By Facility): CTDIvol = ( 8.98 ) mGy, DLP = ( 393.46 ) mGycm TECHNIQUE: Transaxial images were obtained from the dome of the diaphragm to the symphysis pubis with oral contrast. 75 mL of ISOVUE 370 was administered. Sagittal and coronal images were reconstructed. Individualized dose optimization techniques were used for this CT. COMPARISON: 05/01/2015. FINDINGS: The visualized lung bases are unremarkable. The heart is enlarged. Coronary artery calcifications. Calcified bilateral breast implants. Normal liver. The gallbladder is absent with mild intra and extrahepatic biliary ductal dilatation. There is no filling defects. There is mild splenomegaly. There is diffuse atrophy of the pancreas. Normal bilateral adrenal glands. The right kidney demonstrates limited contrast enhancement. There are multiple cortical and axial [place] cystic changes. There are also appears to be a subcapsular fluid collection along the posterior aspect of the kidney extending downward to the lower pole. This measures 3.9 x 1.7 x 9.7 cm in size. This demonstrates heterogenous density with attenuation 47 [place] units. Question subcapsular hematoma. kidney demonstrates limited contrast enhancement with multiple cystic structures. Arising off the lower pole of the kidney is a 6.8 x 6.5 x 5.9 cm mass with attenuation of 57 [place] units aren''t represent a hematoma. There is marked stranding of the adjacent perinephric fat. Normal visualized stomach. Normal small intestine. Normal colon. There is non-visualization of the appendix. There is diffuse atherosclerotic calcification of the abdominal aorta, without a demonstrated aneurysm. Normal inferior vena cava. Normal retroperitoneum. Normal urinary bladder. Unremarkable vaginal cuff. There is no pelvic lymphadenopathy. No free air or free fluid is seen within the peritoneal cavity. Normal abdominal wall. Normal osseous structures. CT/Abdomen/Pelvis WITH Contrast IMPRESSION: 1. Findings suggestive of bilateral subcapsular renal hematomas. The largest is seen on the left. 2. Multiple bilateral renal cysts with decreased contrast uptake similar to the previous study. 3. No other evidence of acute intra-abdominal or pelvic process or major interval change. Electronically Signed: Alfredo Finley DO at 19:05 EST Reading Location ID and State: [facility] / [place] Tel [phone], Service support ,
== END 2021-05-15 23:59 | disposition home or self-care (01) ==
LOC: CT 17:21
PROVIDERS: PCP Family Medicine Geriatric Medicine; Referring Provider Family Medicine Geriatric Medicine; Visit Provider Family Medicine Geriatric Medicine
DX: R10.9 Unspecified abdominal pain (principal)
CPT/HCPCS: 74177; Q9967

== ENCOUNTER 2021-05-15 18:12 | Emergency (ER) | payer MEDICARE, SELFPAY ==
[2021-05-15] VITALS (8 sets, daily range): BP systolic 104–148; BP diastolic 53–80; PULSE 68–75; RESP 15–25; TEMP 36.1–36.7; O2SAT 94–100; BMI 25.7
--- NOTE | 2021-05-15 18:38 | RAD_ITS ---
STUDY: X-RAY - PELVIS REASON FOR EXAM: Female, 80 years old. Fall 2 days ago. TECHNIQUE: One view of the pelvis was obtained. COMPARISON: CT of the abdomen and pelvis, 05/15/2021. FINDINGS: There is a non-specific bowel gas pattern. Normal visualized soft tissue structures. Contrast from prior CT within the urinary bladder. Oral contrast is seen in the colon. Normal bilateral iliac wings, sacroiliac joints and visualized sacrum. Normal visualized bilateral superior and inferior pubic rami. Normal pubic symphysis. Normal ischial tuberosities. Normal visualized right femoral head. Normal right acetabulum. Normal right hip joint. Normal visualized left femoral head. Normal left acetabulum. Normal left hip joint. RAD/Pelvis 1 or 2 Views IMPRESSION: No fracture or dislocation. Electronically Signed: Alfredo Finley DO at 20:26 EST ,
--- NOTE | 2021-05-15 18:38 | EKG12_ITS ---
Test Reason : DYSRHYTHMIA Blood Pressure : / mmHG Vent. Rate : 070 BPM Atrial Rate : 070 BPM P-R Int : 190 ms QRS Dur : 140 ms QT Int : 424 ms P-R-T Axes : 059 -17 146 degrees QTc Int : 457 ms Normal sinus rhythm Left bundle branch block Abnormal ECG Confirmed by JAMIE CLINTON, RENAN ([id number]), editor managing director ISADORA SALEH ([id number]) on 05/18/2021 9:44:20 AM Referred By: Confirmed By:RENAN AYALA MD
--- NOTE | 2021-05-15 18:38 | CT_ITS ---
STUDY: CT BRAIN WITHOUT CONTRAST REASON FOR EXAM: Female, 80 years old. Fall 2 days ago. Hit head. Patient takes anticoagulant. RADIATION DOSAGE (If Supplied By Facility): CTDIvol = ( 44.99 ) mGy, DLP = ( 812.98 ) mGycm TECHNIQUE: Transaxial CT imaging of the brain was performed without administration of intravenous contrast material. Individualized dose optimization techniques were used for this CT. COMPARISON: 05/02/2021. FINDINGS: There is minimal soft tissue edema over the left upper parietal region. Normal calvarium. Normal size ventricles and extra-axial spaces for the patient''s age. Normal white matter tracts of the cerebral hemispheres. Normal basal ganglia and thalami. Normal brainstem. Normal cerebellum. There is no intracranial hemorrhage. There are no findings of an acute ischemic infarction. Normal visualized paranasal sinuses. CT/Brain/Head without Contrast IMPRESSION: 1. No acute intracranial or calvarial abnormality. 2. Minimal soft tissue hematoma over the left parietal region. Electronically Signed: Alfredo Finley DO at 20:02 EST ,
--- NOTE | 2021-05-15 18:38 | CT_ITS ---
STUDY: CT CERVICAL SPINE WITHOUT CONTRAST REASON FOR EXAM: Female, 80 years old. Fall 2 days ago with head trauma. RADIATION DOSAGE (If Supplied By Facility): CTDIvol = ( 12.34 ) mGy, DLP = ( 233.34 ) mGycm TECHNIQUE: High resolution transaxial imaging was performed without contrast material. Sagittal and coronal images were reconstructed. Individualized dose optimization techniques were used for this CT. COMPARISON: MRI of the cervical spine, 05/02/2021. FINDINGS: Normal craniovertebral junction. There are mild degenerative changes of the anterior atlantoaxial articulation. Normal odontoid process. There is straightening of the normal cervical lordosis. Normal vertebral bodies and posterior osseous elements. C2-3: Normal endplates. Normal disc height and morphology. Left sided facet joint degenerative change. Normal central canal. Narrowing of the lateral intervertebral neuroforamen. C3-4: Normal endplates. Minimal loss of disc height. Marked left-sided facet joint degenerative change. Normal central canal. Narrowing of the left intervertebral neuroforamen. C4-5: Endplate spondylosis. Loss of disc height with minimal bulging annulus. Bilateral facet joint degenerative change. Normal central canal. Mild narrowing of the bilateral intervertebral neuroforamina. C5-6: Endplate spondylosis. Marked loss of disc height. Facet and uncovertebral joint degenerative change. Mild stenosis on the central canal and intervertebral neuroforamina. C6-7: Endplate spondylosis with loss of disc height. Facet and uncovertebral joint degenerative change. Mild stenosis of the central canal and narrowing of the bilateral intervertebral neuroforamina. C7-T1: Normal endplates. Loss of disc height. Facet joint degenerative change. Normal central canal and intervertebral neuroforamina. Normal visualized soft tissue structures. CT/Spine Cervical without Contras IMPRESSION: Degenerative changes of the cervical spine without acute fracture or subluxation. There is no marked interval change when compared to the prior study. Note: MRI is more sensitive than CT in detecting cord injury, ligamentous injury and epidural hematoma. If there is continued clinical concern for any of these entities, MRI should be considered. Electronically Signed: Alfredo Finley DO at 20:14 EST Reading Location ID and State: [facility] / [place] Tel [phone], Service support ,
[2021-05-15 18:59] LABS: Absolute Neutrophil Count 9.1 X10^3/uL (2.0-7.7); Basophil# 0.02 X10^3/uL; Basophil% 0.2 % (0-1); Eosinophil# 0.01 X10^3/uL; Eosinophils% 0.1 % (0-5); Hematocrit 22.1 % (37-47); Lymphocyte % 5.6 % (19-41); Mean Corp Hgb Conc 31.7 g/dL (32-36); Mean Corpuscular Hgb 31.1 pg (27.0-32.0); Mean Corpuscular Volume 98.2 fL (81-99); Mean Platelet Vol. 11.3 fl (6.2-12.0); Monocyte# 0.84 X10^3/uL; Monocyte% 7.9 % (0-10); NRBC Flagged by Analyzer 0 % (0-5); Neutrophil # 9.11 X10^3/uL (2.7-7.7); Neutrophil % 85.8 % (47-70); POSITIVE DIFFERENTIAL YES; Platelet Count 200 K/mm3 (150-450); RBC Distribution Width CV 14.6 % (11.6-14.6); RBC Distribution Width SD 53.2 fl (35.1-43.9); Red Blood Count 2.25 M/mm3 (4.2-5.4); White Blood Count 10.6 K/mm3 (4.4-11.0)
[2021-05-15 19:01] LABS: Differential Indicated SCAN CRITERIA MET
[2021-05-15 19:15] LABS: Anion Gap 5 (5-15); BUN 27 mg/dL (7-18); BUN/Creat Ratio 15.9 RATIO (10-20); CPK Total, Creatine Kinase 213 U/L (26-192); Calcium,Total 7.8 mg/dL (8.5-10.1); Chloride 102 mmol/L (98-107); EST Glomerular Filtration Rate 31 mL/min (>60); Est Glom Filt Rate - Afr Amer 37 mL/min (>60); Estimated Creatinine Clearance 22.03 ml/min; Glucose 112 mg/dL (74-106); Potassium 3.7 mmol/L (3.5-5.1); Sodium Level 134 mmol/L (136-145); Troponin-I HS 15 pg/mL (3.0-54.0)
--- NOTE | 2021-05-15 19:25 | RAD_ITS ---
STUDY: X-RAY CHEST REASON FOR EXAM: Female, 80 years old. Shortness of breath. Possible internal bleeding. Left lower quadrant abdominal pain. Fall on Friday. Patient on blood thinner. TECHNIQUE: Single AP portable view of the chest. COMPARISON: CT of the chest, 08/09/2019. FINDINGS: The lungs are clear and expanded. There is no demonstrated pleural abnormality. There is mild cardiac enlargement. Normal mediastinum and eloy. Normal visualized pulmonary arteries. There is atherosclerotic tortuosity of the aortic arch and descending thoracic aorta. Normal visualized thoracic spine. Normal visualized ribs, clavicles, and shoulders. There is no demonstrated abnormality of the visualized soft tissue structures of the upper abdomen. RAD/Chest 1 View (Portable) IMPRESSION: Cardiomegaly with tortuous aorta. There is no acute pulmonary disease Electronically Signed: Alfredo Finley DO at 19:59 EST ,
[2021-05-15 19:42] LABS: Anisocytosis 1+; Hypochromasia 2+; Macrocytosis 1+; Platelet Estimate ADEQUATE (ADEQ); Red Cell Morphology N CHROM NORMAL (NORM C&C)
[2021-05-15 20:29] LABS: Mucous, Urine 0 SEEN /hpf (<or=2+); Red Blood Cells-Urine 0 SEEN /hpf (0-5)
[2021-05-15 20:41] LABS: Color, Urine Yellow (Yellow); Glucose, Dipstick Normal (Normal); Ketone-Dipstick Negative (Negative); Leukocyte Esterase-Dipstick 500 /ul (Negative); Nitrite-Dipstick Negative (Negative); Occult Blood-Urine 50 /ul (Negative); Protein-Dipstick 30 mg/dl (Negative); Specific Gravity, Urine 1.015 (1.002-1.030); Urine Bilirubin Dipstick Negative (Negative); Urine Clarity Cloudy (Clear); Urine Urobilinogen Normal (Normal)
[2021-05-15 20:48] LABS: Bacteria 1+ /hpf (None Seen); Squamous Epithelial Cells - UA 25-50 SEEN /hpf (5-10); White Blood Cells 25-50 SEEN /hpf (0-5)
--- NOTE | 2021-05-15 22:21 | EX.ED.DYSGE1 ---
HPI History of Present Illness Chief Complaint: Abd Pain Informant: patient and family Narrative Narrative: 80 year old female presenting due to abnormal CT scan. Patient was found by family yesterday at the bottom of the stairs. She refused transport at that time. Today she followed up with her primary care physician and CT abdomen was ordered due to left lower quadrant pain. CT abdomen pelvis showed bilateral subcapsular renal hematomas. Patient denies loss of consciousness. Per family she has had memory difficulties that have been progressively worsening over the past several months. They state she has had weakness and was unable to walk secondary to weakness. Prior similar symptoms: Yes Recent Illness/Hospitalization: No [facility] Medical History (Updated 05/15/21 @ 22:[address] 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 GERD (gastroesophageal reflux disease) History of stroke HTN (hypertension) Hyperlipidemia Hyperthyroidism Hyperuricemia Long-term use of high-risk medication Non-Hodgkin lymphoma ovarian cyst drain Renal insufficiency Skin infection solar keratosis dorsum of the left hand Stress fracture, left foot, initial encounter for fracture T&A Tobacco abuse Traumatic open wound of left lower leg with delayed healing Unspecified immunity deficiency Home Medications amlodipine 2.5 mg PO DAILY 06/15/14 [History Last Taken 05/15/21] cholecalciferol (vitamin D3) 2,000 unit PO DAILY 08/12/19 [History Last Taken 05/15/21] cyanocobalamin (vitamin B-12) 100 mcg IM Q30D 08/12/19 [History Last Taken 05/15/21] labetalol 100 mg PO BID 08/12/19 [History Last Taken 05/15/21] citalopram 10 mg tablet 10 mg PO DAILY tab 04/09/21 [History Last Taken 05/15/21] folic acid 1 mg tablet 1 mg PO DAILY #30 tab 04/09/21 [Rx Last Taken 05/15/21] gabapentin 400 mg capsule 400 mg PO DAILY cap 04/09/21 [History Last Taken Unknown] rivaroxaban 20 mg tablet 20 mg PO DAILY tab 04/09/21 [History Last Taken Unknown] Allergy/AdvReac Type Severity Reaction Status Date / Time allopurinol Allergy Rash Verified 05/15/21 18:14 adhesive tape AdvReac Rash Verified 05/15/21 18:14 morphine AdvReac Nausea Verified 05/15/21 18:14 Family History Mother Cancer Father Cancer Surgical History H/O hernia repair H/O repair of rotator cuff H/O toe surgery History of appendectomy History of hysterectomy Social History (Updated 04/09/21 @ 10:49 by Noni Gomez) Smoking Status: Current every day smoker tobacco type: cigarettes Tobacco: How many years used: 40 Electronic Cigarette Use: not used second hand exposure: Yes alcohol intake: never substance use type: does not use caffeine: Yes Type: carbonated beverages what type of physical activity do you participate in: none ROS ROS ED Constitutional Constitutional ED: Denies fever(s) Eyes Eyes: Denies change in vision ENT ENT ED: Denies rhinorrhea or sore throat Cardiovascular Cardiovascular: Denies chest pain or palpitations Respiratory/Chest Respiratory/Chest: Denies cough or dyspnea Gastrointestinal Gastrointestinal: Reports abdominal pain; Denies diarrhea, nausea or vomiting Genitourinary Genitourinary ED: Denies dysuria Musculoskeletal Musculoskeletal: Reports myalgias Integumentary Denies rash Neurologic Neurologic: Denies headache(s) Psychiatric Psychiatric: Denies suicidal thoughts EXAM Physical Exam Const Vital Signs: 05/15/21 18:13 05/15/21 18:40 05/15/21 19:12 Temperature 97 F L Temperature Source Temporal Pulse Rate 75 69 71 Respiratory Rate 18 23 H 25 H Blood Pressure 104/80 142/60 H 134/53 H Blood Pressure Mean 88 87 80 Pulse Ox 100 94 95 Oxygen Delivery Method Room Air Room Air Room Air 05/15/21 19:57 05/15/21 20:14 05/15/21 21:24 Temperature 97 F L 98.1 F Temperature Source Temporal Temporal Pulse Rate 71 74 70 Respiratory Rate 25 H 15 25 H Blood Pressure 134/53 H 141/63 H 148/79 H Blood Pressure Mean 80 89 102 Pulse Ox 95 94 96 Oxygen Delivery Method Room Air Room Air Room Air 05/15/21 22:10 Temperature Temperature Source Pulse Rate 68 Respiratory Rate 16 Blood Pressure 143/64 H Blood Pressure Mean 90 Pulse Ox 94 Oxygen Delivery Method Room Air Positive well nourished and well developed General Appearance ED: well developed HEENT Reports normocephalic and head/scalp atraumatic HEENT Narrative: Right periorbital ecchymosis. Left frontal scalp ecchymosis Eyes PERRL and EOMs intact bilaterally Neck supple General: Negative for tenderness Chest Wall inspection of chest normal Resp normal respiratory effort and clear to auscultation bilaterally Cardio regular rate and regular rhythm GI non-distended Palpation: soft and tender LLQ; Negative for guarding or rebound tenderness present no CVA tenderness Back/Spine Cervical Spine: Negative for cervical spine tenderness Thoracic Spine / Upper Back: Negative for thoracic spinal tenderness or paraspinal muscle tenderness Lumbar Spine / Lower Back: Negative for lumbar spinal tenderness Extremity normal to inspection Extremity Narrative: Multiple ecchymosis bilateral upper and lower extremities. Ecchymosis right hand with active full range of motion. Neuro oriented x3 and no sensory deficits noted Sensorium / Orientation: alert Motor Exam: strength 5/5 throughout Psych mental status grossly normal MDM MDM MDM Narrative Medical decision making narrative: CT head and cervical spine were obtained which showed no acute process. Pelvis x-ray shows no fracture. Chest x-ray shows cardiomegaly. Outpatient CT abdomen shows bilateral subcapsular renal hematomas, largest on the left. Multiple bilateral renal cysts. No other acute intra-abdominal or pelvic process. Patient remained hemodynamically stable. CBC shows hemoglobin 7.0. BUN 27, creatinine 1.7. CK 213. Troponin is negative. Urinalysis shows 25-50 white blood cells. Urine culture was sent. She was given Rocephin IV. She was given IV fluids. Family lives in [place] and is requesting [facility]. Discussed with [facility] for transfer. Lab Data Attestation: I reviewed the patient's lab results. Labs: Laboratory Results - last 24 hr 05/15/21 05/15/21 05/15/21 18:53 18:53 20:25 WBC 10.6 RBC 2.25 L Hgb 7.0 L Hct 22.1 L MCV 98.2 MCH 31.1 MCHC 31.7 L RDW Std Deviation 53.2 H RDW Coeff of Reza 14.6 Plt Count 200 MPV 11.3 Immature Gran % (Auto) 0.400 Neut % (Auto) 85.8 H Lymph % (Auto) 5.6 L [place] % (Auto) 7.9 Eos % (Auto) 0.1 Baso % (Auto) 0.2 Absolute Neuts (auto) 9.1 H Absolute Lymphs (auto) 0.60 L Nucleated RBC % 0 Differential Comment SEE COMMENT Platelet Estimate ADEQUATE RBC Morphology N CHROM Hypochromasia 2+ Anisocytosis 1+ Macrocytosis 1+ Sodium 134 L Potassium 3.7 Chloride 102 Carbon Dioxide 27.0 Anion Gap 5 BUN 27 H Creatinine 1.70 H Estim Creat Clear Calc 22.03 Est GFR (MDRD) Af Amer 37 L Est GFR (MDRD) Non-Af 31 L BUN/Creatinine Ratio 15.9 Glucose 112 H Calcium 7.8 L Total Creatine Kinase 213 H Troponin I High Sens 15 Urine Color Yellow Urine Clarity Cloudy Urine pH 5.0 Ur Specific [place] 1.015 Urine Protein 30 H Urine Glucose (UA) Normal Urine Ketones Negative Urine Occult Blood 50 H Urine Nitrite Negative Urine Bilirubin Negative Urine Urobilinogen Normal Ur Leukocyte Esterase 500 H Urine RBC 0 SEEN Urine WBC 25-50 SEEN Ur Squamous Epith Cells 25-50 SEEN Urine Bacteria 1+ Urine Mucus 0 SEEN Radiography Chest X-Ray - ED: 1 View, Read by ED Physician and Read by Radiologist Diagnostic Testing: Clinical Impression(s) from Imaging Studies Brain CT 05/15/21 18:38 IMPRESSION: 1. No acute intracranial or calvarial abnormality. 2. Minimal soft tissue hematoma over the left parietal region. Electronically Signed: Alfredo Finley DO at 20:02 EST Reading Location ID and State: [address] [place] [address] Tel [phone], Service support , Cervical Spine CT 05/15/21 18:38 IMPRESSION: Degenerative changes of the cervical spine without acute fracture or subluxation. There is no marked interval change when compared to the prior study. Note: MRI is more sensitive than CT in detecting cord injury, ligamentous injury and epidural hematoma. If there is continued clinical concern for any of these entities, MRI should be considered. Electronically Signed: Alfredo Finley DO at 20:14 EST Reading Location ID and State: [address] [place] [address] Tel [phone], Service support , Pelvis X-Ray 05/15/21 18:38 IMPRESSION: No fracture or dislocation. Electronically Signed: Alfredo Finley DO at 20:26 EST Reading Location ID and State: [facility] / [place] Tel [phone], Service support , Chest X-Ray 05/15/21 19:25 IMPRESSION: Cardiomegaly with tortuous aorta. There is no acute pulmonary disease Electronically Signed: Alfredo Finley DO at 19:59 EST Reading Location ID and State: [facility] / [place] Tel [phone], Service support , EKG Initial EKG: Attestation: I personally reviewed and interpreted this EKG as follows: Interpretation: Sinus Rhythm and LBBB Discharge Plan Triage Chief Complaint: Abd Pain ED Provider: Fouzia Winkler Dx/Rx/DC Orders Clinical Impression: Renal hematoma, left, Renal hematoma, right, Fall, Acute UTI Prescriptions: No Action Xarelto 20 mg tablet 20 mg PO DAILY RF: 0 citalopram 10 mg tablet 10 mg PO DAILY RF: 0 amlodipine 2.5 MG tablet 2.5 mg PO DAILY RF: 0 gabapentin 400 mg capsule 400 mg PO DAILY RF: 0 cyanocobalamin (vitamin B-12) 1,000 MCG/ML solution 100 mcg IM Q30D RF: 0 labetalol 100 MG tablet 100 mg PO BID RF: 0 cholecalciferol (vitamin D3) 2,000 UNIT capsule 2,000 unit PO DAILY RF: 0 folic acid 1 mg tablet 1 mg PO DAILY Qty: 30 RF: 3 Primary Care Provider: Kayden Lan Chi Referrals: Kayden Lan Chi, MD [Primary Care Provider] - Disposition Disposition: Acute Care Hospital Discharge Location: [facility]
[2021-05-15] MEDS: Ceftriaxone 1 GM/50 ML BAG IV (22:25)
== END 2021-05-15 23:11 | disposition short-term general hospital (02) ==
PROVIDERS: Emergency Provider Emergency Medicine; PCP Family Medicine Geriatric Medicine; Visit Provider Emergency Medicine
DX: S37.012A Minor contusion of left kidney, initial encounter (principal); S37.011A Minor contusion of right kidney, initial encounter; N39.0 Urinary tract infection, site not specified; F17.210 Nicotine dependence, cigarettes, uncomplicated; I10 Essential (primary) hypertension; Z79.899 Other long term (current) drug therapy; W19.XXXA Unspecified fall, initial encounter
CPT/HCPCS: 36415; 70450; 71045; 72125; 72170; 74177; 80048; 80053; 81001; 82150; 82550; 83690; 84484; 85025; 87086; 87088; 93005; 96361; 96365; 99285; J7030; J7040; Q9967; A4216

== ENCOUNTER 2021-06-28 15:28 | Outpatient (CLI) | payer MEDICARE, SELFPAY ==
[2021-06-28 17:35] LABS: Hematocrit 30.4 % (37-47); Hemoglobin 9.8 g/dL (12.0-15.0); Mean Corp Hgb Conc 32.2 g/dL (32-36); Mean Corpuscular Volume 89.9 fL (81-99); Mean Platelet Vol. 11.1 fl (6.2-12.0); Platelet Count 361 K/mm3 (150-450); RBC Distribution Width CV 14.5 % (11.6-14.6); RBC Distribution Width SD 47.5 fl (35.1-43.9); Red Blood Count 3.38 M/mm3 (4.2-5.4); White Blood Count 7.9 K/mm3 (4.4-11.0)
[2021-07-03 13:08] LABS: Albumin 2.6 g/dL (2.9-4.4); Alpha-1-Globulins 0.3 g/dL (0.0-0.4); Alpha-2-Globulins 0.8 g/dL (0.4-1.0); Gamma Globulin 0.9 g/dL (0.4-1.8); Immunoglobulin A 433 mg/dL (64-422); Immunoglobulin G 950 mg/dL (586-1602); Immunoglobulin M 33 mg/dL (26-217); PROEL- TOTAL PROTEIN 5.8 g/dL (6.0-8.5)
== END 2021-06-28 23:59 | disposition home or self-care (01) ==
LOC: MTLAB 15:29
PROVIDERS: PCP Family Medicine Geriatric Medicine; Referring Provider Psychiatry & Neurology Neurology; Visit Provider Psychiatry & Neurology Neurology
DX: D64.9 Anemia, unspecified (principal); G62.9 Polyneuropathy, unspecified
CPT/HCPCS: 36415; 82746; 82784; 84165; 85027; 86334; 86335

== ENCOUNTER 2021-07-13 10:17 | Outpatient (CLI) | payer MEDICARE, SELFPAY ==
--- NOTE | 2021-07-13 11:25 | NEURO_ITS ---
NCS and/or EMG Patient Report Ordering Doctor: Magdy Rashid DATE OF SERVICE: 07/13/21 Indication: Weakness in both lower extremities. No clear associated sensory deficits, but reports that feet can be really hot or really cold. Findings: The right tibial motor study recording the abductor hallucis revealed a reduced amplitude and slightly prolonged latency (not supramaximal stimulation). A response from the proximal stimulation site was not obtained as the patient refused to continue with the study. Impression: This is an incomplete examination due to poor patient tolerance of the procedure. Multi Select Codes Neurology Neurology Interp Codes: 43011-41 [facility] cndj tst 1-2 studies (interp)
== END 2021-07-13 23:59 | disposition home or self-care (01) ==
LOC: PSN 10:18
PROVIDERS: PCP Family Medicine Geriatric Medicine; Referring Provider Psychiatry & Neurology Neurology; Visit Provider Psychiatry & Neurology Neurology
DX: R25.8 Other abnormal involuntary movements (principal); G62.9 Polyneuropathy, unspecified; M54.50 Low back pain, unspecified
CPT/HCPCS: 95907

== ENCOUNTER → 2021-09-10 | Outpatient (CLI) | payer MEDICARE, SELFPAY ==
[2021-09-10 12:51] LABS: Absolute Lymphocyte Count 0.83 X10^3/uL (0.83-4.51); Absolute Neutrophil Count 5.1 X10^3/uL (2.0-7.7); Basophil# 0.04 X10^3/uL; Basophil% 0.6 % (0-1); Eosinophil# 0.15 X10^3/uL; Eosinophils% 2.3 % (0-5); Hematocrit 39.5 % (37-47); Hemoglobin 12.6 g/dL (12.0-15.0); Lymphocyte # 0.83 X10^3/ul (0.83-4.51); Lymphocyte % 12.5 % (19-41); Mean Corp Hgb Conc 31.9 g/dL (32-36); Mean Corpuscular Hgb 29.6 pg (27.0-32.0); Mean Corpuscular Volume 92.9 fL (81-99); Mean Platelet Vol. 11.6 fl (6.2-12.0); Monocyte# 0.53 X10^3/uL; NRBC Flagged by Analyzer 0 % (0-5); Neutrophil # 5.06 X10^3/uL (2.7-7.7); Neutrophil % 76.3 % (47-70); Platelet Count 314 K/mm3 (150-450); RBC Distribution Width CV 14.8 % (11.6-14.6); RBC Distribution Width SD 50.6 fl (35.1-43.9); Red Blood Count 4.25 M/mm3 (4.2-5.4); White Blood Count 6.6 K/mm3 (4.4-11.0)
[2021-09-10 13:05] LABS: Vitamin D,25 Hydroxy 53.9 ng/mL
[2021-09-10 13:38] LABS: ALB/GLOB Ratio 0.8 RATIO (0.9-2.4); AST(SGOT) 13 U/L (15-37); Alanine Aminotransfer ALT/SGPT 14 U/L (13-56); Albumin, Serum 3.2 g/dL (3.2-5.0); Alkaline Phosphatase 101 U/L (45-117); Anion Gap 7 (5-15); BUN 18 mg/dL (7-18); BUN/Creat Ratio 10.4 RATIO (10-20); Chloride 105 mmol/L (98-107); Creatinine, Serum 1.73 mg/dL (0.55-1.02); EST Glomerular Filtration Rate 30 mL/min (>60); Est Glom Filt Rate - Afr Amer 36 mL/min (>60); Globulin 3.8 g/dL (2.2-4.2); Glucose 71 mg/dL (74-106); Potassium 4.1 mmol/L (3.5-5.1); Sodium Level 138 mmol/L (136-145); Uric Acid 9.1 mg/dL (2.6-6.0)
== END | disposition home or self-care (01) ==
LOC: POLAB3 09:40
PROVIDERS: PCP Family Medicine Geriatric Medicine; Visit Provider Family Medicine Geriatric Medicine
DX: I10 Essential (primary) hypertension (principal); E55.9 Vitamin D deficiency, unspecified; M10.9 Gout, unspecified
CPT/HCPCS: 36415; 80053; 82306; 84443; 84550; 85025

== ENCOUNTER → 2021-11-01 | Outpatient (CLI) | payer MEDICARE, SELFPAY ==
--- NOTE | 2021-11-01 14:47 | CT_ITS ---
STUDY: CT BRAIN WITHOUT CONTRAST REASON FOR EXAM: Female, 81 years old. TIA, UNSPECIFIED RADIATION DOSAGE (If Supplied By Facility): CTDIvol = ( 44.99 ) mGy, DLP = ( 762.36 ) mGycm TECHNIQUE: Transaxial CT imaging of the brain was performed without administration of intravenous contrast material. Individualized dose optimization techniques were used for this CT. COMPARISON: May 15, 2021. FINDINGS: Normal soft tissue structures. Right maxillary superficial soft tissue piercing noted. Normal calvarium. There is mild cerebral atrophy with widening of the extra-axial spaces and ventricular dilatation. There are areas of decreased attenuation within the white matter tracts of the supratentorial brain, consistent with microvascular disease changes. Normal basal ganglia and thalami. Normal brainstem. Normal cerebellum. Carotid and vertebral atherosclerosis. There is no intracranial hemorrhage. There are no findings of an acute ischemic infarction. Mild scattered paranasal sinus mucoperiosteal thickening. CT/Brain/Head without Contrast IMPRESSION: No evidence of acute intracranial hemorrhage or injury. Senescent changes and atherosclerosis without significant change from 05/15/2021. Electronically Signed: Luis Armando Sullivan MD at 8:12 EDT ,
[2021-11-01 15:47] LABS: Erythrocyte Sedimentation Rate 21 mm/hr (0-30)
[2021-11-01 15:48] LABS: Absolute Lymphocyte Count 1.15 X10^3/uL (0.83-4.51); Absolute Neutrophil Count 4.1 X10^3/uL (2.0-7.7); Basophil# 0.07 X10^3/uL; Basophil% 1.2 % (0-1); Eosinophils% 1.7 % (0-5); Hematocrit 42.6 % (37-47); Hemoglobin 13.6 g/dL (12.0-15.0); Lymphocyte # 1.15 X10^3/ul (0.83-4.51); Mean Corp Hgb Conc 31.9 g/dL (32-36); Mean Corpuscular Hgb 30.7 pg (27.0-32.0); Mean Corpuscular Volume 96.2 fL (81-99); Mean Platelet Vol. 11.3 fl (6.2-12.0); Monocyte# 0.55 X10^3/uL; Monocyte% 9.1 % (0-10); NRBC Flagged by Analyzer 0 % (0-5); Neutrophil % 67.5 % (47-70); Platelet Count 262 K/mm3 (150-450); RBC Distribution Width CV 13.5 % (11.6-14.6); RBC Distribution Width SD 48.5 fl (35.1-43.9); Red Blood Count 4.43 M/mm3 (4.2-5.4); White Blood Count 6.1 K/mm3 (4.4-11.0)
[2021-11-01 16:34] LABS: Anion Gap 6 (5-15); BUN 23 mg/dL (7-18); BUN/Creat Ratio 13.5 RATIO (10-20); CRP < 2.90 mg/L (0.0-3.0); Calcium,Total 9.7 mg/dL (8.5-10.1); Chloride 104 mmol/L (98-107); EST Glomerular Filtration Rate 31 mL/min (>60); Est Glom Filt Rate - Afr Amer 37 mL/min (>60); Glucose 102 mg/dL (74-106); Sodium Level 137 mmol/L (136-145)
== END | disposition home or self-care (01) ==
PROVIDERS: PCP Family Medicine Geriatric Medicine; Visit Provider Family Medicine Geriatric Medicine
DX: G45.9 Transient cerebral ischemic attack, unspecified (principal); E86.0 Dehydration; N39.0 Urinary tract infection, site not specified
CPT/HCPCS: 36415; 70450; 80048; 85025; 85652; 86140; 87086; 87088

== ENCOUNTER → 2021-11-13 | Outpatient (CLI) | payer MEDICARE, SELFPAY ==
--- NOTE | 2021-11-13 15:42 | MRI_ITS ---
INDICATION: HEADACHE, rt facial droop EXAMINATION: MRI brain without intravenous contrast. TECHNIQUE: Multiplanar, multisequence MRI brain was performed without intravenous contrast. IV Contrast Dosage and Agent: None. COMPARISON: CT brain without contrast 11/01/2021. MRI brain with and without contrast 05/02/2021. FINDINGS: INFARCT/HEMORRHAGE/MASS: No acute infarct, acute hemorrhage, or mass. Small chronic infarct right caudate head containing a small amount of chronic blood products similar to prior. No midline shift, hydrocephalus or herniation. WHITE MATTER AND VOLUME: Moderate chronic FLAIR/T2 hyperintensities in the cerebral white matter. Brain volume otherwise normal for age. FLOW VOIDS: Major flow voids preserved. PARANASAL SINUSES: Paranasal sinuses with no air-fluid levels. Mastoid air cells and middle ears patent. CALVARIUM: Calvarium unremarkable. EXTRACRANIAL SOFT TISSUES: Extracranial soft tissues unremarkable. MRI/Brain without Contrast IMPRESSION: No acute findings. No significant interval change. Small chronic infarct right caudate head containing a small amount of chronic blood products similar to prior. Electronically Signed: Faustino Rae MD at 1:51 EDT Reading Location ID and State: [facility] / [place] Tel , Service support ,
== END | disposition home or self-care (01) ==
LOC: MRI 15:32
PROVIDERS: PCP Family Medicine Geriatric Medicine; Referring Provider Family Medicine Geriatric Medicine; Visit Provider Family Medicine Geriatric Medicine
DX: R51.9 Headache, unspecified (principal)
CPT/HCPCS: 70551

== ENCOUNTER → 2022-03-13 | Outpatient (CLI) | payer MEDICARE, SELFPAY ==
[2022-03-13 13:18] LABS: Absolute Lymphocyte Count 0.86 X10^3/uL (0.83-4.51); Absolute Neutrophil Count 5.4 X10^3/uL (2.0-7.7); Basophil# 0.05 X10^3/uL; Basophil% 0.7 % (0-1); Eosinophil# 0.15 X10^3/uL; Eosinophils% 2.1 % (0-5); Hemoglobin 14.5 g/dL (12.0-15.0); Lymphocyte # 0.86 X10^3/ul (0.83-4.51); Mean Corp Hgb Conc 32.2 g/dL (32-36); Mean Corpuscular Hgb 31.6 pg (27.0-32.0); Mean Platelet Vol. 12.1 fl (6.2-12.0); Monocyte# 0.68 X10^3/uL; Monocyte% 9.5 % (0-10); NRBC Flagged by Analyzer 0 % (0-5); Neutrophil # 5.39 X10^3/uL (2.7-7.7); Platelet Count 253 K/mm3 (150-450); RBC Distribution Width CV 13.1 % (11.6-14.6); RBC Distribution Width SD 46.5 fl (35.1-43.9); Red Blood Count 4.59 M/mm3 (4.2-5.4); White Blood Count 7.2 K/mm3 (4.4-11.0)
[2022-03-13 13:31] LABS: Vitamin D,25 Hydroxy 42.5 ng/mL
[2022-03-13 13:47] LABS: ALB/GLOB Ratio 0.8 RATIO (0.9-2.4); AST(SGOT) 9 U/L (15-37); Alanine Aminotransfer ALT/SGPT 12 U/L (13-56); Albumin, Serum 3.3 g/dL (3.2-5.0); Alkaline Phosphatase 131 U/L (45-117); Anion Gap 10 (5-15); BUN 11 mg/dL (7-18); BUN/Creat Ratio 7.2 RATIO (10-20); Calcium,Total 9.2 mg/dL (8.5-10.1); Chloride 103 mmol/L (98-107); Creatinine, Serum 1.52 mg/dL (0.55-1.02); EST Glomerular Filtration Rate 35 mL/min (>60); Est Glom Filt Rate - Afr Amer 42 mL/min (>60); Glucose 70 mg/dL (74-106); Potassium 3.8 mmol/L (3.5-5.1); Protein, Total 7.3 g/dL (6.4-8.2); Sodium Level 138 mmol/L (136-145); Thyroid Stim Hormone (TSH) 1.11 uIU/mL (0.358-3.74); Uric Acid 9.1 mg/dL (2.6-6.0)
== END | disposition home or self-care (01) ==
PROVIDERS: PCP Family Medicine Geriatric Medicine; Visit Provider Family Medicine Geriatric Medicine
DX: I10 Essential (primary) hypertension (principal); E55.9 Vitamin D deficiency, unspecified; M10.9 Gout, unspecified
CPT/HCPCS: 36415; 80053; 82306; 84443; 84550; 85025

== ENCOUNTER → 2022-06-17 | Outpatient (CLI) | payer MEDICARE, SELFPAY ==
[2022-06-17 16:00] LABS: Absolute Lymphocyte Count 1.13 X10^3/uL (0.83-4.51); Basophil# 0.08 X10^3/uL; Basophil% 1.1 % (0-1); Eosinophil# 0.17 X10^3/uL; Eosinophils% 2.4 % (0-5); Lymphocyte # 1.13 X10^3/ul (0.83-4.51); Lymphocyte % 16.2 % (19-41); Mean Corp Hgb Conc 32.6 g/dL (32-36); Mean Corpuscular Volume 98.2 fL (81-99); Mean Platelet Vol. 11.7 fl (6.2-12.0); Monocyte# 0.57 X10^3/uL; Monocyte% 8.2 % (0-10); NRBC Flagged by Analyzer 0 % (0-5); Neutrophil # 4.99 X10^3/uL (2.7-7.7); Neutrophil % 71.7 % (47-70); Platelet Count 239 K/mm3 (150-450); RBC Distribution Width CV 13.4 % (11.6-14.6); RBC Distribution Width SD 48.3 fl (35.1-43.9); Red Blood Count 4.38 M/mm3 (4.2-5.4)
[2022-06-17 16:34] LABS: ALB/GLOB Ratio 0.9 RATIO (0.9-2.4); AST(SGOT) 14 U/L (15-37); Alanine Aminotransfer ALT/SGPT 14 U/L (13-56); Albumin, Serum 3.3 g/dL (3.2-5.0); Alkaline Phosphatase 132 U/L (45-117); Anion Gap 3 (5-15); BUN 14 mg/dL (7-18); BUN/Creat Ratio 9.8 RATIO (10-20); Calcium,Total 9.2 mg/dL (8.5-10.1); Chloride 104 mmol/L (98-107); Creatinine, Serum 1.43 mg/dL (0.55-1.02); EST Glomerular Filtration Rate 37 mL/min (>60); Est Glom Filt Rate - Afr Amer 45 mL/min (>60); Globulin 3.8 g/dL (2.2-4.2); Glucose 104 mg/dL (74-106); Potassium 4.4 mmol/L (3.5-5.1); Protein, Total 7.1 g/dL (6.4-8.2); Sodium Level 134 mmol/L (136-145)
--- NOTE | 2022-06-17 16:41 | CT_ITS ---
STUDY: CT BRAIN WITHOUT CONTRAST REASON FOR EXAM: Female, 81 years old. TIA Individualized dose optimization techniques were used for this CT. TECHNIQUE: Transaxial CT imaging of the brain was performed without administration of intravenous contrast material. COMPARISON: 11.01.21 FINDINGS: There are calcifications around the carotid artery. These are noted in the cavernous carotid arteries. Normal calvarium. Normal soft tissues. There is mild cerebral atrophy with widening of the extra-axial spaces and ventricular dilatation. There are areas of decreased attenuation within the white matter tracts of the supratentorial brain, consistent with microvascular disease changes. Normal basal ganglia and thalami. Normal brainstem. There is mild cerebellar atrophy. There is no intracranial hemorrhage. There are no findings of an acute ischemic infarction. Right mastoidectomy changes. There is an electronic hearing device in the right mastoid. ASPECTS Score for Acute Strokes: 10 CT/Brain/Head without Contrast IMPRESSION: There are no acute findings. Chronic involutional changes of the brain. Electronically Signed: Hudson Zaman MD at 17:13 EDT ,
== END | disposition home or self-care (01) ==
LOC: CT 15:06
PROVIDERS: PCP Family Medicine Geriatric Medicine; Referring Provider Family Medicine Geriatric Medicine; Visit Provider Family Medicine Geriatric Medicine
DX: G45.9 Transient cerebral ischemic attack, unspecified (principal); I10 Essential (primary) hypertension; N39.0 Urinary tract infection, site not specified
CPT/HCPCS: 36415; 70450; 80053; 85025; 87086; 87088

== ENCOUNTER → 2022-06-18 | Outpatient (CLI) | payer MEDICARE, SELFPAY | END | disposition home or self-care (01) | LOC: PSN 13:49 | PROVIDERS: PCP Family Medicine Geriatric Medicine; Visit Provider Family Medicine Geriatric Medicine | DX: R68.83 Chills (without fever) (principal); Z20.822 Contact with and (suspected) exposure to COVID-19 | CPT/HCPCS: 87635; 87804; 87807; C9803; U0003; U0005 ==

== ENCOUNTER → 2022-06-27 | Outpatient (CLI) | payer MEDICARE, SELFPAY ==
--- NOTE | 2022-06-27 17:27 | MRI_ITS ---
STUDY: MRI BRAIN WITHOUT CONTRAST REASON FOR EXAM: Female, 81 years old. TIA TECHNIQUE: MRI examination brain fusion protocol including multiplanar multiecho noncontrast imaging. Contrast: No contrast administered. COMPARISON: Previous MRI of 11/13/2021, CT examination of 06/17/2022. HEMISPHERES, CEREBELLUM AND BRAINSTEM: 1. Significant susceptibility artifact is present distorting a significant portion of the intracranial contents secondary to metallic hardware along the lateral aspect of the RIGHT cranial vault, associated with a cochlear implant. 2. The visualized cerebral parenchyma, ventricular system and gyral pattern abnormal configuration. There is involutional change and chronic microvascular deep white matter change. No areas of fluid restriction identified however markedly limited exam. There is a remote lacunar infarct in the RIGHT basal ganglia. 3. No evidence of hemorrhage in the visualized intracranial contents. 4. The cerebellum, brainstem, basilar and suprasellar cisterns have normal appearance. No Chiari malformation. PITUITARY: Infundibulum and pituitary have normal configuration. Midline structures appear normal. CSF SPACES: Appropriate for age. No hydrocephalus. Basal cisterns are patent. VESSELS: 1. There are normal flow voids noted in the great vessels at the skull base ORBITS AND PARANASAL SINUSES: 1. Both globes, extraocular muscles, optic nerves and retrobulbar fat appear unremarkable. Sequelae of bilateral cataract surgery. 2. Moderate ethmoid sinus disease is noted. There are findings consistent with opacification the RIGHT mastoid air cells. Mild LEFT mastoid air cell disease also noted. BONY ELEMENTS: Bony elements of the cranial vault, facial skeleton and skull base have normal appearance. SCALP AND SOFT TISSUES: Normal appearance of the soft tissues of the scalp and the visualized face OTHER: None MRI/Brain without Contrast IMPRESSION: 1. Extensive susceptibility artifact due to metal hardware from a cochlear implant on the RIGHT. There is obscuration of significant portions intracranial contents. 2. There is evidence of diffuse involutional change chronic deep white matter disease and an area of remote lacunar infarct in the RIGHT basal ganglia however no evidence of acute territorial infarct however significantly limited exam due to susceptibility artifact. 3. Extensive RIGHT mastoid air cell disease and mild LEFT mastoid air cell disease. Mild ethmoid disease also present. Electronically Signed: Derrick Horton MD at 20:39 EDT ,
== END | disposition home or self-care (01) ==
LOC: MRI 17:03
PROVIDERS: PCP Family Medicine Geriatric Medicine; Referring Provider Family Medicine Geriatric Medicine; Visit Provider Family Medicine Geriatric Medicine
DX: G45.9 Transient cerebral ischemic attack, unspecified (principal)
CPT/HCPCS: 70551

== ENCOUNTER → 2022-09-11 | Outpatient (CLI) | payer MEDICARE, SELFPAY ==
[2022-09-11 13:52] LABS: Absolute Lymphocyte Count 0.92 X10^3/uL (0.83-4.51); Absolute Neutrophil Count 4.5 X10^3/uL (2.0-7.7); Basophil# 0.09 X10^3/uL; Basophil% 1.4 % (0-1); Eosinophil# 0.18 X10^3/uL; Eosinophils% 2.8 % (0-5); Hematocrit 43.2 % (37-47); Hemoglobin 13.9 g/dL (12.0-15.0); Lymphocyte # 0.92 X10^3/ul (0.83-4.51); Lymphocyte % 14.6 % (19-41); Mean Corp Hgb Conc 32.2 g/dL (32-36); Mean Corpuscular Hgb 32.1 pg (27.0-32.0); Mean Corpuscular Volume 99.8 fL (81-99); Mean Platelet Vol. 11.9 fl (6.2-12.0); Monocyte# 0.58 X10^3/uL; Monocyte% 9.2 % (0-10); NRBC Flagged by Analyzer 0 % (0-5); Neutrophil # 4.52 X10^3/uL (2.7-7.7); Neutrophil % 71.5 % (47-70); Platelet Count 273 K/mm3 (150-450); RBC Distribution Width CV 12.7 % (11.6-14.6); RBC Distribution Width SD 46.7 fl (35.1-43.9); Red Blood Count 4.33 M/mm3 (4.2-5.4); White Blood Count 6.3 K/mm3 (4.4-11.0)
[2022-09-11 15:49] LABS: ALB/GLOB Ratio 0.8 RATIO (0.9-2.4); AST(SGOT) 11 U/L (15-37); Alanine Aminotransfer ALT/SGPT 11 U/L (13-56); Albumin, Serum 3.1 g/dL (3.2-5.0); Alkaline Phosphatase 145 U/L (45-117); Anion Gap 4 (5-15); BUN 12 mg/dL (7-18); BUN/Creat Ratio 8.1 RATIO (10-20); Chloride 103 mmol/L (98-107); Creatinine, Serum 1.48 mg/dL (0.55-1.02); EST Glomerular Filtration Rate 36 mL/min (>60); Est Glom Filt Rate - Afr Amer 44 mL/min (>60); Globulin 3.9 g/dL (2.2-4.2); Glucose 94 mg/dL (74-106); Potassium 4.7 mmol/L (3.5-5.1); Sodium Level 135 mmol/L (136-145); Thyroid Stim Hormone (TSH) 0.71 uIU/mL (0.358-3.74); Uric Acid 8.8 mg/dL (2.6-6.0)
[2022-09-12 10:05] LABS: Vitamin D,25 Hydroxy 54.4 ng/mL (29.95-100.01)
== END | disposition home or self-care (01) ==
LOC: LAB 12:41
PROVIDERS: PCP Family Medicine Geriatric Medicine; Referring Provider Family Medicine Geriatric Medicine; Visit Provider Family Medicine Geriatric Medicine
DX: I10 Essential (primary) hypertension (principal); M10.9 Gout, unspecified; E55.9 Vitamin D deficiency, unspecified
CPT/HCPCS: 36415; 80053; 82306; 84443; 84550; 85025

== ENCOUNTER → 2022-09-26 | Outpatient (CLI) | payer MEDICARE, SELFPAY ==
--- NOTE | 2022-09-26 15:28 | RAD_ITS ---
STUDY: X-RAY CHEST REASON FOR EXAM: Female, 82 years old. SOB TECHNIQUE: PA and lateral views of the chest. COMPARISON: Comparison is made with prior study dated May 15, 2021. FINDINGS: Stable appearance of the bilateral breast implants. There is hyperinflation of the lungs consistent with chronic obstructive lung disease (COPD). No focal infiltrate is seen. There is no demonstrated pleural abnormality. Normal size heart. Calcified right hilar lymph nodes. Normal visualized pulmonary arteries. There is atherosclerotic calcification of the aortic arch with tortuosity. There are diffuse degenerative changes of the visualized thoracic spine. Increased kyphosis. There is degenerative osteoarthritis of the bilateral shoulders. There is no demonstrated abnormality of the visualized soft tissue structures of the upper abdomen. RAD/Chest PA and Lateral IMPRESSION: Hyperinflation with decreased bronchovascular markings in the upper lobes suggestive of emphysematous change. No acute abnormality is seen. Electronically Signed: Zane Weiner MD at 15:49 EDT ,
== END | disposition home or self-care (01) ==
LOC: RAD 15:12
PROVIDERS: PCP Family Medicine Geriatric Medicine; Referring Provider Family Medicine Geriatric Medicine; Visit Provider Family Medicine Geriatric Medicine
DX: R06.02 Shortness of breath (principal)
CPT/HCPCS: 71046

== ENCOUNTER → 2022-10-04 | Outpatient (CLI) | payer MEDICARE, SELFPAY | END | disposition home or self-care (01) | LOC: PSN 12:21 | PROVIDERS: PCP Family Medicine Geriatric Medicine; Referring Provider Family Medicine Geriatric Medicine; Visit Provider Family Medicine Geriatric Medicine | DX: R68.83 Chills (without fever) (principal) | CPT/HCPCS: 87635; 87804; 87807; C9803 ==

== ENCOUNTER → 2023-01-16 | Outpatient (CLI) | payer MEDICARE, SELFPAY ==
--- NOTE | 2023-01-16 13:49 | RAD_ITS ---
EXAM: XR LUMBOSACRAL SPINE, 4 OR 5 VIEWS CLINICAL INDICATION: LUMBAR DISC DISEASE TECHNIQUE: Frontal, lateral and bilateral oblique views of the lumbar spine. COMPARISON: No relevant prior studies available. FINDINGS: VERTEBRAE: Unremarkable. Preserved vertebral body height. No fracture. No spondylolisthesis. Preservation of the normal lumbar lordosis. No significant facet arthropathy. DISC SPACES: There is disc space narrowing at L4-5 and L5-S1. There is severe facet hypertrophy at L4-5 and L5-S1 with bony neural foraminal narrowing. GASTROINTESTINAL TRACT: Unremarkable as visualized. Included bowel gas pattern is non-obstructive. RAD/L/S Spine Min 4 Views IMPRESSION: 1. No acute osseous abnormalities of the lumbar spine. 2. Degenerative changes in the lower lumbar spine with disc space narrowing, facet hypertrophy and bony neural foraminal narrowing. Electronically Signed: Edi Montero MD at 23:59 EDT ,
[2023-01-16 14:38] LABS: Absolute Lymphocyte Count 0.87 X10^3/uL (0.83-4.51); Absolute Neutrophil Count 7.4 X10^3/uL (2.0-7.7); Basophil# 0.07 X10^3/uL; Basophil% 0.8 % (0-1); Eosinophil# 0.15 X10^3/uL; Eosinophils% 1.6 % (0-5); Hemoglobin 8.3 g/dL (12.0-15.0); Lymphocyte # 0.87 X10^3/ul (0.83-4.51); Lymphocyte % 9.5 % (19-41); Mean Corp Hgb Conc 31.9 g/dL (32-36); Mean Corpuscular Hgb 32.2 pg (27.0-32.0); Mean Corpuscular Volume 100.8 fL (81-99); Mean Platelet Vol. 11.1 fl (6.2-12.0); Monocyte% 6.6 % (0-10); NRBC Flagged by Analyzer 0 % (0-5); Neutrophil # 7.37 X10^3/uL (2.7-7.7); Neutrophil % 80.8 % (47-70); Platelet Count 383 K/mm3 (150-450); RBC Distribution Width CV 15.1 % (11.6-14.6); RBC Distribution Width SD 54.5 fl (35.1-43.9); Red Blood Count 2.58 M/mm3 (4.2-5.4); White Blood Count 9.1 K/mm3 (4.4-11.0)
[2023-01-16 14:53] LABS: ALB/GLOB Ratio 0.7 RATIO (0.9-2.4); AST(SGOT) 8 U/L (15-37); Alanine Aminotransfer ALT/SGPT 12 U/L (13-56); Albumin, Serum 2.7 g/dL (3.2-5.0); Alkaline Phosphatase 142 U/L (45-117); Anion Gap 8 (5-15); BUN 22 mg/dL (7-18); BUN/Creat Ratio 15.8 RATIO (10-20); Calcium,Total 8.8 mg/dL (8.5-10.1); Chloride 104 mmol/L (98-107); Creatinine, Serum 1.39 mg/dL (0.55-1.02); EST Glomerular Filtration Rate 38 mL/min (>60); Est Glom Filt Rate - Afr Amer 46 mL/min (>60); Globulin 3.7 g/dL (2.2-4.2); Glucose 105 mg/dL (74-106); Protein, Total 6.4 g/dL (6.4-8.2); Sodium Level 136 mmol/L (136-145)
== END | disposition home or self-care (01) ==
PROVIDERS: PCP Family Medicine Geriatric Medicine; Referring Provider Family Medicine Geriatric Medicine; Visit Provider Family Medicine Geriatric Medicine
DX: M51.9 Unspecified thoracic, thoracolumbar and lumbosacral intervertebral disc disorder (principal); I10 Essential (primary) hypertension
CPT/HCPCS: 36415; 72110; 80053; 85025

== ENCOUNTER → 2023-01-17 | Outpatient (CLI) | payer MEDICARE, SELFPAY ==
[2023-01-17 13:20] LABS: Absolute Lymphocyte Count 0.64 X10^3/uL (0.83-4.51); Absolute Neutrophil Count 12.2 X10^3/uL (2.0-7.7); Basophil# 0.02 X10^3/uL; Basophil% 0.1 % (0-1); Hematocrit 25.8 % (37-47); Hemoglobin 8.1 g/dL (12.0-15.0); Lymphocyte # 0.64 X10^3/ul (0.83-4.51); Lymphocyte % 4.7 % (19-41); Mean Corp Hgb Conc 31.4 g/dL (32-36); Mean Corpuscular Hgb 31.8 pg (27.0-32.0); Mean Corpuscular Volume 101.2 fL (81-99); Mean Platelet Vol. 11.2 fl (6.2-12.0); Monocyte# 0.57 X10^3/uL; Monocyte% 4.2 % (0-10); NRBC Flagged by Analyzer 0.1 % (0-5); Neutrophil # 12.18 X10^3/uL (2.7-7.7); Neutrophil % 89.8 % (47-70); Platelet Count 427 K/mm3 (150-450); RBC Distribution Width CV 15.3 % (11.6-14.6); RBC Distribution Width SD 57.1 fl (35.1-43.9); RET-HE 31.4 pg (30-35); Red Blood Count 2.55 M/mm3 (4.2-5.4); Reticulocyte Count 5.85 % (0.5-1.5); White Blood Count 13.6 K/mm3 (4.4-11.0)
[2023-01-17 14:01] LABS: Ferritin 27 ng/mL (8-252); Iron 27 ug/dL (50-170); Iron Binding Capacity,Total 289 ug/dL (250-450); PERCENT IRON SATURATION 9.3 % (15.0-55.0)
[2023-01-17 14:12] LABS: Vitamin B12 > 2000 pg/mL (211-911)
== END | disposition home or self-care (01) ==
LOC: POLAB3 12:05
PROVIDERS: PCP Family Medicine Geriatric Medicine; Visit Provider Family Medicine Geriatric Medicine
DX: D50.9 Iron deficiency anemia, unspecified (principal)
CPT/HCPCS: 36415; 82607; 82728; 82746; 83540; 83550; 85025; 85045

== ENCOUNTER → 2023-01-23 | Outpatient (CLI) | payer MEDICARE, SELFPAY ==
[2023-01-23 17:47] LABS: Absolute Lymphocyte Count 1.06 X10^3/uL (0.83-4.51); Basophil# 0.02 X10^3/uL; Basophil% 0.2 % (0-1); Eosinophil# 0.09 X10^3/uL; Eosinophils% 0.7 % (0-5); Hemoglobin 8.9 g/dL (12.0-15.0); Lymphocyte # 1.06 X10^3/ul (0.83-4.51); Lymphocyte % 8.6 % (19-41); Mean Corp Hgb Conc 30.7 g/dL (32-36); Mean Corpuscular Hgb 30.6 pg (27.0-32.0); Mean Corpuscular Volume 99.7 fL (81-99); Mean Platelet Vol. 10.9 fl (6.2-12.0); Monocyte# 1.07 X10^3/uL; Monocyte% 8.7 % (0-10); NRBC Flagged by Analyzer 0 % (0-5); Neutrophil # 9.97 X10^3/uL (2.7-7.7); Neutrophil % 81.1 % (47-70); Platelet Count 400 K/mm3 (150-450); RBC Distribution Width CV 14.7 % (11.6-14.6); RBC Distribution Width SD 54.1 fl (35.1-43.9); Red Blood Count 2.91 M/mm3 (4.2-5.4); White Blood Count 12.3 K/mm3 (4.4-11.0)
== END | disposition home or self-care (01) ==
LOC: POLAB3 17:20
PROVIDERS: PCP Family Medicine Geriatric Medicine; Visit Provider Family Medicine Geriatric Medicine
DX: D50.9 Iron deficiency anemia, unspecified (principal)
CPT/HCPCS: 36415; 85025

== ENCOUNTER 2023-01-31 08:58 | Day surgery (SDC) | payer MEDICARE, SELFPAY ==
[2023-01-31] VITALS (7 sets, daily range): BP systolic 90–145; BP diastolic 41–65; PULSE 62–74; RESP 14–18; TEMP 36.4–36.8; O2SAT 90–98; BMI 20.2
--- NOTE | 2023-01-31 | IMM_PTH ---
PATIENT: TIMOTHY MARCH LOC: EN U#:[id number] AGE/SX: 82/F ROOM: RE01/31/[address]: Dr. Juan Elizondo MD : 1940 BED: DIS: 01/31/2023 SPEC #: [id number] RECD: 01/31/23 14:24 STATUS: MARGIE REQ #: [id number] JEFF: 01/31/23 00:[address]: Juan Elizondo DEPT: IMMUNOHISTOCHEMISTRY RECD BY: Teri Coleman ENTERED: 01/31/23 14:25 SP TYPE: IMMUNO OTHR DR: Dr. Kayden Lan MD Tissues: Gastric mucous membrane Procedures: H Pylori (initial) PHYSICIAN & INSTITUTION [place] [id number] SPECIMEN INFORMATION: Tissue Source: Antrum ulcer Clinical Info: Abdominal pain, blood on stool Specimen Number: [id number] CPT code: 26404 METHODOLOGY: Deparaffinized sections of prefer/formalin-fixed tissue or PAP/DQ stained slides are incubated with monoclonal/polyclonal antibodies/oligonucleotide probes. Localization is made via biotin free immunoperoxidase method. Appropriate controls are performed and reacted as expected. Results on target cell population are indicated in the following table: RESULTS: ANTIBODY / CLONE RESULT H Pylori (polyclonal) negative These tests were developed and their performance characteristics determined by [facility]. They may not have been cleared or approved by the U.S. Food and Drug Administration. The FDA has determined that such clearance or approval is not necessary. The above immunohistochemical/dualISH markers are ordered and reviewed by the Pathologist. INTERPRETATION: Antral ulcer, biopsy: Negative for Helicobacter pylori organisms. AM:sarah 02/03/2023
--- NOTE | 2023-01-31 | GASB_PTH ---
PATIENT: TIMOTHY MARCH LOC: EN U#:[id number] AGE/SX: 82/F ROOM: RE01/31/[address]: Dr. Juan Elizondo MD : 1940 BED: DIS: 01/31/2023 SPEC #: [id number] RECD: 01/31/23 13:46 STATUS: MARGIE RESully #: [id number] JEFF: 01/31/23 00:[address]: Juan Elizondo DEPT: SURGICAL PATHOLOGY RECD BY: Clifford Rhodes ENTERED: 01/31/23 13:46 SP TYPE: Gastric Bx OTHR DR: Dr. Kayden Lan MD Tissues: Gastric mucous membrane Procedures: Surgery Specimen Level IV HEADER OPERATION: EGD PRE-OP DIAGNOSIS: Abdominal Pain, Blood in stool TISSUE SUBMITTED: Antrum ulcer biopsy MICROSCOPIC DIAGNOSIS Gastric antrum, biopsy: Chronic gastritis. Fibrinopurulent material suggestive of ulcer. See comment. AM:sarah 02/04/2023 COMMENT Clinical correlation is suggested. The results of immunohistochemistry for Helicobacter pylori will be reported separately ([id number]). MICROSCOPIC DESCRIPTION Slides are reviewed. GROSS DESCRIPTION Received in fixative is one container labeled with the patient's name and designated antral ulcer biopsy. The specimen consists of multiple irregular fragments of light forte soft tissue that in aggregate measure 1.5 x 0.3 x 0.1 cm. The specimen is totally submitted in one cassette. / SJ:sarah 01/31/2023 TC: CPT: 15487
[2023-01-31] MEDS: Lactated Ringers 1,000 ML 15 ML IV (09:54)
--- NOTE | 2023-01-31 10:21 | PCM.HP.BLA ---
History and Physical Date of Admission: 01/31/23 Intake Vital Signs 08/14/2312:03 01/28/2313:50 Height 5 ft 4 in 5 ft 4 in Weight: 122 lb BMI 20.9 BP 117/76 Blood Pressure Location Rt brachial Position Sitting Respiration 17 Pulse 89 Pulse Source Monitor Pulse Oximetry (%) 89 Oxygen Delivery Method room air Intake Visit Reasons: GI Bleed/Black Stools Chief Complaint: gi bleed/black stools Is patient in pain?: Yes Allergies allopurinol Allergy (Verified 01/28/23 13:51) Rashadhesive tape Adverse Reaction (Verified 01/28/23 13:51) Rashmorphine Adverse Reaction (Verified 01/28/23 13:51) Nausea Medications amlodipine 2.5 mg tablet 2.5 mg PO DAILY 06/15/14 [History Confirmed 01/28/23] cholecalciferol (vitamin D3) 50 mcg (2,000 unit) capsule 2,000 unit PO DAILY 08/12/19 [History Confirmed 01/28/23] labetalol 100 mg tablet 100 mg PO BID 08/12/19 [History Confirmed 01/28/23] pantoprazole 40 mg tablet,delayed release 40 mg PO BID 06/28/21 [History Confirmed 01/28/23] sucralfate 1 gram tablet 1 g PO BID 06/28/21 [History Confirmed 01/28/23] aspirin 81 mg tablet,delayed release (Adult Low Dose Aspirin) 81 mg PO DAILY 08/14/22 [History Confirmed 01/28/23] ascorbic acid (vitamin C) 500 mg capsule 500 mg PO DAILY 01/28/23 [History Confirmed 01/28/23] mirtazapine 15 mg tablet (Remeron) 7.5 mg PO DAILY 01/28/23 [History Confirmed 01/28/23] polysaccharide iron complex 150 mg iron capsule (Ferrex) 150 mg PO DAILY 01/28/23 [History Confirmed 01/28/23] [facility] Medical History Cellulitis of left leg Community acquired pneumonia Constipation COPD (chronic obstructive pulmonary disease) Diarrhea eardrum repair Exertional dyspnea 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 GERD (gastroesophageal reflux disease) History of stroke HTN (hypertension) Hyperlipidemia Hyperthyroidism Hyperuricemia Long-term use of high-risk medication Non-Hodgkin lymphoma ovarian cyst drain Renal insufficiency Skin infection solar keratosis dorsum of the left hand Stress fracture, left foot, initial encounter for fracture T&A Tobacco abuse Traumatic open wound of left lower leg with delayed healing Unspecified immunity deficiency Surgical History H/O hernia repair H/O repair of rotator cuff H/O toe surgery History of appendectomy History of hysterectomy Family History (Updated 01/28/23 @ 13:49 by Iliana Cooper) Mother CancerFather Cancer Diabetes Social History Smoking Status: Current every day smoker tobacco type: cigarettes Tobacco: How many years used: 40 Electronic Cigarette Use: not used second hand exposure: Yes alcohol intake: never substance use type: does not use caffeine: Yes Type: carbonated beverages what type of physical activity do you participate in: none HPI HPI HPI: Patient is an 82-year-old female here with black tarry stools and abdominal pain. Patient reports that she has had a fall recently and they did blood work when that happened and she was anemic. She does not note any gross blood in her will but she does say she is having black stools. Patient also has a history of MALT. Patient was last treated in 2014. The patient has not had a CT in over a year and a half. She says she has not had a bowel movement in a week. She is also not eating. She describes abdominal pain in the epigastric region. She is already on a PPI. ROS General General: Yes weight change and fatigue; No appetite, colon cancer, breast cancer or weakness HEENT HEENT: Yes eye surgery; No difficulty swallowing, eye injury, swollen glands or hoarseness Endo Endocrine: No thyroid disease, diabetes mellitus, thyroid cancer, Hair loss, heat intolerance or cold intolerance Skin Skin: No rash or changing moles Musc Musculoskeletal: Yes back problems, arthritis and gout; No rheumatoid arthritis or joint pain Cardio Cardiovascular: Yes high blood pressure; No murmur, pacemaker, heart disease, atrial fibrillation, heart attack, heart stent, palpitations, shortness of breat with exertion or chest pain Psych Psychiatric: Yes depression and anxiety; No hearing voices Resp Respiratory: Yes shortness of breath, No sleep apnea, Yes cough, No COPD, No asthma, Yes emphysema and No wheezing Gastro Gastrointestinal: Yes abdominal pain, No nausea or vomiting, No diarrhea, Yes constipation, Yes blood in stool, No acid reflux, Yes hemorrhoids, No ulcers, No gallbladder problem and Yes black,tarry stools [place] Hematologic: No blood thinners, No blood disorders, No bleeding, Yes anemia and No blood clots Neuro Neurologic: No system reviewed and no additional complaints, except as documented, No as per HPI, No abnormal gait, No abnormal hearing, No abnormal movements, No abnormal speech, No behavioral changes, No burning sensations, No confusion, No convulsions, No disequilibrium, No dizziness, No localized weakness, No frequent falls, No headache(s), No lack of coordination, No loss of vision, No memory loss, No numbness, No other visual disturbances, No radicular pain, No restless legs, No sensory deficit, No syncope, No tingling, No tremor(s), No weakness and No other Exam Const General: cooperative Orientation: alert and oriented x3 HENMT Head: normal to inspection Neck Neck: normal visual inspection and full ROM Chest Chest palpation & inspection: normal inspection of the chest Resp Effort & Inspection: normal respiratory effort Auscultation: clear to auscultation bilaterally Cardio Rate: regular rate Rhythm: regular rhythm GI Inspection: non-distended Palpation: soft and nontender Skin General: no rashes or lesions noted Neuro General: patient alert and patient oriented x3 Extrem General: full ROM Psych Appearance: grossly normal Mental Status: mental status grossly normal Assessment and Plan Assessment and Plan (1) Abdominal pain: Status: Acute (2) Blood in stool: Status: Acute Orders: Orders EGD Today Abdomen/Pelvis WITH Contrast Today C85.90 - Non-Hodgkin lymphoma, unspecified, unspecified site, C85.93 - Non-Hodgkin lymphoma, unspecified, intra-abdominal lymph nodes, K92.1 - Melena, R10.9 - Unspecified abdominal pain Plan The patient is having abdominal pain and decreased stool output as well as black tarry stools. She is also anemic. I would like to perform an EGD to start as well as a CT scan. I discussed this with the patient and her daughter. Patient and daughter are agreeable. I will plan for EGD this Friday. I explained endoscopy in detail to the patient. I explained the risks including but not limited to stroke or heart attack with anesthesia, perforation of the GI tract, bleeding, infection. I explained that any of these could necessitate further emergency surgery. The patient understands and all questions were answered sufficiently. The patient wishes to proceed with procedure. Juan Elizondo MD Pager: [facility] [address] [place] [address], [address] [place] [address] Office: I have examined the patient and the H&P has been reviewed. There are no clinical changes since date of exam.
--- NOTE | 2023-01-31 11:02 | OP.EGD_ITS ---
Patient Name: Shaunna Saenz Procedure Date: 01/31/2023 10:42 AM Date of : 1940 Age: 82 Procedure: Upper GI endoscopy Indications: Iron deficiency anemia Providers: Juan Elizondo MD Referring MD: Juan Elizondo MD Medicines: Propofol per Anesthesia Patient Profile: This is an 82 year old female. Refer to note in patient chart for documentation of history and physical. Complications: No immediate complications. Estimated blood loss: Minimal. Procedure: Pre-Anesthesia Assessment: - Prior to the procedure, a History and Physical was performed, and patient medications and allergies were reviewed. The patient's tolerance of previous anesthesia was also reviewed. The risks and benefits of the procedure and the sedation options and risks were discussed with the patient. All questions were answered, and informed consent was obtained. Prior Anticoagulants: The patient has taken no anticoagulant or antiplatelet agents. After reviewing the risks and benefits, the patient was deemed in satisfactory condition to undergo the procedure. After obtaining informed consent, the endoscope was passed under direct vision. Throughout the procedure, the patient's blood pressure, pulse, and oxygen saturations were monitored continuously. The Endoscope was introduced through the mouth, and advanced to the fourth part of duodenum. The upper GI endoscopy was accomplished without difficulty. The patient tolerated the procedure well. Scope In: 10:49:58 AM Scope Out: 10:54:56 AM Total Procedure Duration Time 0 hours 4 minutes 58 seconds Findings: The esophagus was normal. The examined duodenum was normal. One non-bleeding cratered gastric ulcer with no stigmata of bleeding was found in the gastric antrum. Biopsies were taken with a cold forceps for Helicobacter pylori testing. Impression: - Normal esophagus. - Normal examined duodenum. - Non-bleeding gastric ulcer with no stigmata of bleeding. Biopsied. Recommendation: - Discharge patient to home. - Resume previous diet. - Continue present medications. - Return to my office in 2 weeks. Procedure Code(s): --- Professional --- 89326, Esophagogastroduodenoscopy, flexible, transoral; with biopsy, single or multiple Diagnosis Code(s): --- Professional --- K25.9, Gastric ulcer, unspecified as acute or chronic, without hemorrhage or perforation D50.9, Iron deficiency anemia, unspecified CPT copyright 2021 [employer]. All rights reserved. The codes documented in this report are preliminary and upon boom tender review may be revised to meet current compliance requirements. Juan Elizondo MD 01/31/2023 11:02:26 AM This report has been signed electronically. Number of Addenda: 0 Note Initiated On: 01/31/2023 10:42 AM
--- NOTE | 2023-01-31 11:03 | OP.CCLET_ITS ---
01/31/2023 Kayden Lan MD [address] [place] [address] Re : Upper GI endoscopy procedure for Shaunna Saenz Dear Dr. Lan This procedure was performed on Tuesday, January 31, 2023. My impressions and recommendations are as follows: Impressions : - Normal esophagus. - Normal examined duodenum. - Non-bleeding gastric ulcer with no stigmata of bleeding. Biopsied. Recommendations : - Discharge patient to home. - Resume previous diet. - Continue present medications. - Return to my office in 2 weeks. My findings are described in the full procedure note, which is enclosed. If I can be of further assistance, please feel free to contact me at Doctor phone number(s): , Work: . Sincerely, Juan Elizondo MD 01/31/2023 11:02:26 AM This report has been signed electronically.
== END 2023-01-31 11:54 | disposition home or self-care (01) ==
LOC: EN 09:05 → AC 09:08
PROVIDERS: PCP Family Medicine Geriatric Medicine; Referring Provider Family Medicine Geriatric Medicine; Visit Provider Surgery
PROC: 0DJ08ZZ Inspection of Upper Intestinal Tract, Via Natural or Artificial Opening Endoscopic (ICD-10-PCS; CPT 43235; principal; 2023-01-31 09:55)
DX: K29.50 Unspecified chronic gastritis without bleeding (principal); C85.93 Non-Hodgkin lymphoma, unspecified, intra-abdominal lymph nodes; J44.9 Chronic obstructive pulmonary disease, unspecified; F17.210 Nicotine dependence, cigarettes, uncomplicated; D50.9 Iron deficiency anemia, unspecified; K25.9 Gastric ulcer, unspecified as acute or chronic, without hemorrhage or perforation; E78.5 Hyperlipidemia, unspecified; I10 Essential (primary) hypertension; Z79.899 Other long term (current) drug therapy; Z79.82 Long term (current) use of aspirin; K21.9 Gastro-esophageal reflux disease without esophagitis
CPT/HCPCS: 43239; 88305; 88342; J7120; J2405

== ENCOUNTER → 2023-02-10 | Outpatient (CLI) | payer MEDICARE, SELFPAY ==
--- NOTE | 2023-02-10 17:07 | CT_ITS ---
EXAM: CT abdomen and pelvis with contrast. HISTORY: abdominal pain, h/o malt lymphoma in stomach -- PO and IV contrast TECHNIQUE: CT Abdomen And Pelvis W/ Contrast Injection. A radiation dose optimization technique was used for this scan. COMPARISON: CT abdomen pelvis May 15, 2021. LIMITATIONS: None. LOWER CHEST: Mild cardiomegaly. Trace pericardial effusion, similar to the prior exam. Mild atelectasis in the right lung base. Trace right pleural effusion. LIVER: Few calcified granulomata and few subcentimeter probable cyst, similar to the prior exam. GALLBLADDER: Hyperdense gallbladder wall, slightly irregular, similar to the prior exam no pericholecystic inflammatory change. BILE DUCTS: Dilated common bile duct measuring 1.2 cm in diameter, similar to the prior exam. No obstructing lesion identified. PANCREAS: Normal. SPLEEN: Not enlarged. Calcified granulomata. 1 cm cyst or hemangioma similar to the prior exam. ADRENAL GLANDS: Normal. KIDNEYS/URETERS/BLADDER: Subcapsular or perinephric hematoma present on the prior exam bilaterally have resolved. Multiple renal cysts bilaterally. Many of the cysts are hyperdense. The partially exophytic cystic lesion in the lower pole of the left kidney at the lateral aspect measures 1.8 x 1.6 cm with a possible solid component. This cystic lesion is not well visualized on the prior exam, likely secondary to mass effect from the hematoma present on the prior study. A partially exophytic cyst from the upper pole of the right kidney measures approximately 2 x 3 cm, increased in size and complexity versus the prior exam when it measured 1.6 x 2.2 cm. No hydronephrosis. AORTA: Atherosclerotic calcification. Ectasia of the infrarenal abdominal aorta measuring 2.2 x 2 cm. BOWEL/MESENTERY: Irregular wall thickening of the distal stomach, similar to mildly increased since the prior exam. Lymph nodes, subcentimeter in short axis, are adjacent to the mass inferiorly, new since the prior exam. No small bowel obstruction. No evidence of colitis. APPENDIX: Not visualized. PERITONEUM: Normal. REPRODUCTIVE ORGANS: Hysterectomy. BONES/SOFT TISSUES: Compression fracture of the L2 vertebral body is new since the prior exam and may be acute. Loss of height of 25-50%. Retropulsion of 3 mm. Mild scoliosis. OTHER: None. CONCLUSION: 1. Irregular wall thickening of the distal stomach, stable to mildly increased since the prior exam, consistent with history of lymphoma. 2. Dilated common bile duct, grossly stable since the prior exam. 3. Multiple complex renal cysts bilaterally including a 2 x 3 cm lesion in the upper pole of the right kidney which has increased in size and complexity since the prior exam, now containing a possible solid component. Similar complex lesion in the lower pole of the left kidney may contain a solid component. These findings are concerning for renal cell carcinoma. 4. Fracture of the L2 vertebral body is new since the prior exam and may be acute. Loss of height of 25-50%. Electronically Signed: Don Quintanilla MD at 1:49 EST , CT/Abdomen/Pelvis WITH Contrast IMPRESSION: undefined
== END | disposition home or self-care (01) ==
PROVIDERS: PCP Family Medicine Geriatric Medicine; Referring Provider Surgery; Visit Provider Surgery
DX: C85.93 Non-Hodgkin lymphoma, unspecified, intra-abdominal lymph nodes (principal); K92.1 Melena; R10.9 Unspecified abdominal pain
CPT/HCPCS: 74177; Q9967; A4216

== ENCOUNTER → 2023-08-22 | Outpatient (CLI) | payer MEDICARE, SELFPAY | END | disposition home or self-care (01) | LOC: LABSPEC 16:15 | PROVIDERS: PCP Family Medicine Geriatric Medicine; Referring Provider Otolaryngology; Visit Provider Otolaryngology | DX: H92.10 Otorrhea, unspecified ear (principal) | CPT/HCPCS: 87070; 87075; 87205 ==